=== PATIENT | female | born 1930 | race Caucasian/White ===

== ENCOUNTER 2016-05-02 10:42 | Inpatient (IN) | payer MEDICARE, OTHER ==
[~2016-05-02] VITALS: Ht 157.5 cm; Wt 73.3 kg
[~2016-05-02 10:42] MED LIST: ATOR20TA PO; CALC500T61 PO; CHOL100043 PO; CYAN50TA2 PO; DABI150C PO; DILT120C10 PO; DILT180C81 PO; FERR-83 PO; FURO40TA4 PO; LEVO88TA4 PO; METO100T3 PO; OMEP-113 PO; VENL37.57 PO; magnesium/zinc PO
[2016-05-02 10:47] VITALS: BP 152/72; PULSE 88; RESP 14; O2SAT 97
--- NOTE | 2016-05-02 10:55 | ED.REPORT ---
HPI-Trauma Minor / Fall Date of Service May 02, 2016 ED Provider: Tai Petersen DO The patient is an 85 year old female with history of endometrial carcinoma with metastatic disease s/p debulking and chemotherapy, congestive heart failure, iron deficiency anemia, atrial fibrillation, tachybradycardia syndrome s/p pacemaker/AICD implant, hypertension, and subdural hematoma in 2012, who was brought to the emergency department by EMS after she had a ground level fall prior to arrival. The patient was at the cardiology office trying to make an appointment when she turned around and fell to the ground. Per staff the patient did not hit her head or lose consciousness. She landed on her right side injuring her right hip and right thumb. Medics administered 50 IM ketamine and the patient is unable to provide history at this time. Nursing Notes Stated Complaint: GROUND LEVEL FALL Chief Complaint: Multiple Trauma/Fall Nursing Notes Reviewed: Yes Allergies: Coded Allergies: fentanyl (Verified Allergy, Severe, VOMIT, 02/13/13) iodine (Verified Allergy, Severe, SEVERE, 02/13/13) meperidine (Verified Allergy, Severe, 02/13/13) Scheduled ([magnesium/zinc]) 1 TAB PO DAILY Atorvastatin (Lipitor) 20 Mg Tablet 10 MG PO HS Calcium Carbonate (Calcium) 500 Mg Tablet 500 MG PO DAILY Cholecalciferol (Vitamin D3) (Vitamin D) 1,000 Unit Tablet 1,000 UNIT PO DAILY Cyanocobalamin (Vitamin B-12) (Vitamin B-12) 50 Mcg Tablet Unknown Dose PO DAILY Dabigatran Etexilate Mesylate (Pradaxa) 150 Mg Capsule 150 MG PO AM Diltiazem ER (Diltiazem ER) 180 Mg Capsule.er 180 MG PO BID Diltiazem ER (Diltiazem ER) 120 Mg Cap.er.12h 120 MG PO HS Ferrous Sulfate (Ferrous Sulfate) 325 Mg Tablet 325 MG PO DAILY Furosemide (Furosemide) 40 Mg Tablet 0.5 TAB PO AM Levothyroxine (Levothyroxine) 88 Mcg Tablet 88 MCG PO DAILY Metoprolol Tartrate (Metoprolol Tartrate) 100 Mg Tablet 2 TAB PO BID Omeprazole Magnesium (Omeprazole) 20 Mg Capsule.dr 20 MG PO DAILY Venlafaxine (Venlafaxine) 37.5 Mg Tablet 37.5 MG PO DAILY General Time Seen by MD: 10:49 Chief Complaint Fall, Extremity pain Hx Obtained From: Patient, EMS Arrived By: Ambulance Onset Occurred: Just prior to arrival Symptom Duration: Since onset Caused by: Fall on ground Location: Hand right Hip right Quality: Painful Severity: Current: Moderate Severity: Maximum: Severe Recent Healthcare: No recent hospitalization Similar Sx Previous: No Past Medical History Past Medical History Advanced endometrial carcinoma with metastatic disease s/p debulking, intraperitoneal systemic chemotherapy completed in December 2006 and was remained in remission since Congestive heart failure from nonischemic cardiomyopathy (last echo 08/22/2013: EF 55-60% was a marked improvement compared to prior, moderate mitral regurg, severely dilated left atrium) Iron deficiency anemia Atrial fibrillation Tachybradycardia syndrome Hypertension Subdural hematoma in December 2012 Sleep apnea Past Surgical History Biventricular pacemaker/AICD Cardiac cath in 2012 Debulking surgery for endometrial CA Family History Noncontributory Smoking History Former Smoker Social History Alcohol Use: Denies alcohol use Other Social History: Local resident Ambulatory Status Independent Review of Systems Unable to Obtain ROS Patient condition Musculoskeletal: Reports: Extremity pain, Joint pain Neurologic: Denies: Change LOC, Dizziness, Lightheaded, Syncope Physical Exam Initial Vital Signs Vital Signs (First) Date Time Temp Pulse Resp B/P Pulse Ox O2 Delivery O2 Flow Rate FiO2 05/02/16 10:47 36.4 88 14 152/72 97 Nasal Cannula 2 Initial VS: Reviewed ENT: Mucous membranes moist, Conjunctiva normal, No scleral icterus Extremities: Vascular intact, Neuro intact Skin: Warm, Dry, No cyanosis Neurologic: Nonfocal GENERAL: minimally verbal, sedated Neck: Supple, Full range of motion Head / Eyes: Atraumatic, Normocephalic Eye Movement: Positive: Nystagmus present Respiratory / Chest: Atraumatic, Breath sounds NL, Breath sounds = bilat, No respiratory distress, No rales, No rhonchi, No wheezing, No chest tenderness, No chest wall deformity, No crepitus Cardiovascular: Heart rate NL, Regular rhythm, Heart sounds NL, No murmurs, No rubs, Cap refill not delayed, Peripheral circulation NL Abdomen: Atraumatic, Soft, Non-tender, No guarding, No rebound, No distention Wrist / Hand: Neurologic intact, Vascular intact Bilateral chronic deformity at the base of the thumb. No obvious tenderness to palpation. Lower Extremity / Pelvis / MS: Neurologic intact, Vascular intact Tenderness at the right hip. Tenderness with axial movement of the right leg. Appears to be vascularly intact distally. Interpretation & Diagnostics Lab Results Interpretation Result Diagram: 05/02/16 1225 05/02/16 1225 Test 05/02/16 12:25 White Blood Count 13.1th/mm3 (3.8-10.1) Red Blood Count 4.32mil/mm3 (3.90-5.20) Hemoglobin 13.4g/dL (12.0-15.6) Hematocrit 40.6% (35.0-46.0) Mean Corpuscular Volume 94.0fL (81-100) Mean Corpuscular Hemoglobin 31.0pg (27.0-35.0) Mean Corpuscular Hemoglobin Concent 33.0% (32.0-37.0) Red Cell Distribution Width 13.0% (12.3-15.4) Platelet Count 225bil/L (150-400) Neutrophils (%) (Auto) 87.1% (40-74) Lymphocytes (%) (Auto) 9.3% (14-46) Monocytes (%) (Auto) 2.5% (4-12) Eosinophils (%) (Auto) 0.4% (0-5) Basophils (%) (Auto) 0.2% (0-3) Sodium Level 136mEq/L (134-144) Potassium Level 4.3mEq/L (3.5-5.2) Chloride Level 95mEq/L (97-108) Carbon Dioxide Level 25mmol/L (18-29) Blood Urea Nitrogen 29mg/dL (8-27) Creatinine 1.39mg/dL (0.57-1.00) Estimat Glomerular Filtration Rate 52mL/min (>59) Glucose Level 177mg/dL (60-99) Calcium Level 9.7mg/dL (8.5-10.1) Magnesium Level 2.0mg/dL (1.6-2.6) Total Bilirubin 0.7mg/dL (0.0-1.2) Aspartate Amino Transf (AST/SGOT) 21U/L (0-50) Alanine Aminotransferase (ALT/SGPT) 16U/L (0-32) Alkaline Phosphatase 105U/L (25-165) Troponin T < 0.010ug/L (0.0-0.011) Pro-B-Type Natriuretic Peptide 4618pg/mL (0-738) Total Protein 8.3g/dL (6.4-8.4) Albumin 4.5g/dL (3.4-5.0) Hold Cespedes Top Tube Received (Received) ECG Interpretation ECG Interpretation: Atrial fibrillation and paced rhythm Time: 11:18 Interpreted by: ED physician X-Ray Chest Interpretation Chest Xray Interpretation: IMPRESSION: Supine portable chest demonstrating no definite, acute cardiopulmonary process. Postoperative and senescent changes are seen. Dictated by: Suresh Stewart M.D. on 05/02/2016 at 11:16 Interpretation / Wet Read by: Interpret - Radiologist X-Ray Interpretation Xray Interpretation: IMPRESSION: There is an impacted, subcapital right femoral neck fracture seen. Dictated by: Suresh Stewart M.D. on 05/02/2016 at 11:13 X-Ray Ordered: Pelvis, Hip right Interpretation / Wet Read by: Interpret - Radiologist Xray Interpretation: 1st distal phalanx fracture Study Performed: Right thumb Interpretation / Wet Read by: Wet read ED physician Procedures Splint Application - Fx Mgt Time: 13:10 Procedure Performed by: ED physician Precise Anatomic Location: right thumb Type of Immobilization: Aluminum-foam Definitive Fracture Care: Pain control, Splint, Performed by me Post-Procedure / Complications: Cap refill normal, Post splint vascular nl, Post splint neuro nl, Condition improved Splint Post-Application Eval Extremity Condition: Cap refill < 2 sec, Distal sensation intact, Distal motor Intact, No compartment syndrome Re-Eval/Medical Decision Med Decision/Clinical Course Patient had a ground-level fall today. Unclear whether this was cardiogenic syncope, however the patient denies loss of consciousness or head injury and this sounds like it is corroborated by medics and bystanders on scene. She incidentally has a right femoral neck fracture and a right first distal phalanx fracture. It does appear that she may be in mild congestive heart failure though hemodynamically she is stable. She will be admitted. Source of Hx: Old records, EMS Re-Evaluation/Progress #1: Time of Eval: 11:43 Re-Evaluation/Progress Note: Rechecked the patient. She is more awake and alert, and able to answer questions. She only complains of right hip pain. She did not hit her head. She denies preceding chest pain, shortness of breath, dizziness, lightheadedness, or stroke-like symptoms. She states she was standing over the counter and either slipped or tripped. Re-Evaluation/Progress #2: Time of Eval: 12:06 Re-Evaluation/Progress Note: Rechecked the patient. Discussed results, diagnosis, and plan for admission. She is now complaining of right thumb pain, will order x-ray. All questions were addressed. Re-Evaluation/Progress #3: Time of Eval: 12:11 Re-Evaluation/Progress Note: Dr. Gallego is in the department seeing the patient. Consultation #1: Referral / Consult Name: Matthew Orr MD Consulted With: Orthopedic Call Returned at: 12:22 Executive Director Of Marketing: Will see patient, Agrees with eval, Agrees with plan Consultation #2: Referral / Consult Name: Azeb Gallego MD Consulted With: Cardiology Call Returned at: 12:23 Note: She is the patient's customer care coordinator and will consult if needed. Consultation #3: Referral / Consult Name: David Ng MD Consulted With: Hospitalist Requested Call at: 12:24 Call Returned at: 12:56 Executive Director Of Marketing: Will see patient, Agrees with eval, Agrees with plan, Accepts admit Counseled Regarding: Diagnosis, Lab results, Need for admission Discharge & Departure Impression: Primary Impression: Fall Encounter type: initial encounter Qualified Code: W19.XXXA - Unspecified fall, initial encounter Additional Impressions: Closed right hip fracture Encounter type: initial encounter Qualified Code: S72.001A - Fracture of unspecified part of neck of right femur, initial encounter for closed fracture CHF exacerbation Phalanx, distal fracture of finger Encounter type: initial encounter Finger: thumb Fracture type: closed Fracture alignment: nondisplaced Laterality: right Qualified Code: S62.524A - Nondisplaced fracture of distal phalanx of right thumb, initial encounter for closed fracture Disposition: ADMITTED TO HOSPITAL Discharge Condition All VS Reviewed: Yes Condition: Stable Referrals: Sanjay Gray MD (PCP) Scribe Attestation Portions of this note were transcribed by Mercedes Miranda. I, Dr. Petersen personally performed the history, physical exam and medical decision-making; I reviewed and confirmed the accuracy of the information in the transcribed note. Signed by: Rand Singletary, 05/02/2016 and 1315. copies to: Sanjay Gray MD, Timothy S DO May 02, 2016 10:55 Mercedes Miranda May 02, 2016 11:00
[2016-05-02] MEDS ORDERED: Ondansetron 2 mg/mL 2 mL Inj IVPUSH ONE (11:05)
--- NOTE | 2016-05-02 12:18 | DRSVH ---
PROCEDURE: X-RAY PELVIS W/LAT HIP (RT) ([id number]) INDICATIONS: fall, right hip pain TECHNIQUE: AP pelvis with lateral view(s) of the right hip(s). COMPARISON: [facility], CT, PELVIS W/O CONTRAST, 03/21/2013, 16:15. [facility], [facility]EL[facility] 1 OR 2VW, 01/19/2013, 19:38. [facility], CR, XR CHEST 1VW (PORTABLE), , 11:48. FINDINGS: Bones: There is a poorly seen, impacted fracture of the subcapital right femoral neck. This represe nts a change compared to the 2012 plain film study. There is no right hip dislocation. No definite additional focal bone abnormality can be seen. Degen erative changes are seen throughout, particularly involving the lower lumbar spine. No suspicious lyt ic or blastic lesions are seen. Soft tissues: The visualized bowel gas pattern is normal. No suspicious soft tissue calcifications. Postoperative changes are seen, with numerous clips, including omentectomy clips. Atherosclerotic c alcification is noted. IMPRESSION: There is an impacted, subcapital right femoral neck fracture seen. Dictated by: Suresh Stewart M.D. on 05/02/2016 at 11:13 Approved by: Suresh Stewart M.D. on 05/02/2016 at 11:16
--- NOTE | 2016-05-02 12:21 | DRSVH ---
PROCEDURE: X-RAY CHEST ONE VIEW, PORTABLE ([id number]) INDICATIONS: fall, right hip pain TECHNIQUE: One view of the chest was acquired. COMPARISON: [facility], CR, XR PELVIS W LATERAL HIP RT, 05/02/2016, 11:48. [facility], CR, CHEST 2VW, 09/11/2014, 8:43. FINDINGS: Surgical changes and devices: A 3-lead pacer device is seen. Upper abdominal postoperative clips are seen involving the left upper quadrant. Lungs and pleura: On this supine examination, no large pneumothorax or large pleural effusions are s een. No focal areas of lung consolidation are seen. Low lung volumes are noted. This causes a crowded appearance to the lung markings and limits evaluation. Mediastinum: Mediastinal contours appear normal. Heart size is normal. Bones and chest wall: No suspicious bony lesions. No definite, displaced rib fractures are seen. A ge-appropriate bony degenerative changes are seen. Overlying soft tissues appear unremarkable. IMPRESSION: Supine portable chest demonstrating no definite, acute cardiopulmonary process. Postoperative and senescent changes are seen. Dictated by: Suresh Stewart M.D. on 05/02/2016 at 11:16 Approved by: Suresh Stewart M.D. on 05/02/2016 at 11:19
[2016-05-02 12:42] LABS: BASOPHILS % (AUTO) 0.2 % (0-3); EOSINOPHILS % (AUTO) 0.4 % (0-5); MONOCYTES % (AUTO) 2.5 % (4-12); NEUTROPHILS % (AUTO) 87.1 % (40-74); Platelet Count 225 bil/L (150-400)
[2016-05-02] MEDS: Lactated Ringer's 1,000 ML IV SCH ×2 (12:59→23:39)
[2016-05-02] MEDS ORDERED: Polyethylene Glycol (PEG) 17 Gm Powder PO PRN (13:00)
[2016-05-02] MEDS ORDERED: Ondansetron 2 mg/mL 2 mL Inj IVPUSH PRN ×2 (13:00→13:15)
[2016-05-02] MEDS ORDERED: Alum-Mag Hydrox-Simeth 30 mL Suspension PO PRN ×2 (13:00→13:15)
[2016-05-02 13:21] LABS: TROPONIN T < 0.010 ug/L (0.0-0.011)
--- NOTE | 2016-05-02 13:23 | DRSVH ---
PROCEDURE: X-RAY FINGERS, TWO VIEWS INDICATIONS: thumb pain post fall TECHNIQUE: AP hand, 2 views of the right thumb acquired. COMPARISON: None. FINDINGS: Bones: There is a transverse linear sclerosis with proximal radiolucency in the midshaft of the dista l phalanx of the thumb, suggestive of compaction injury with incomplete fracture. Degenerative joint disease is evident at the IP joint, the metacarpal phalangeal joint and the basilar joint of the thum b. There is also degeneration in the scaphomultangular joint of the wrist as well as the DIP joints o f the fingers, PIP joint of the fifth ray and the second metacarpal phalangeal joint. Soft tissues: No suspicious soft tissue calcifications. IMPRESSION: 1. Probable impaction injury mid shaft distal phalanx of the thumb for cortical correlation. 2. 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 Dictated by: Davis Estrada M.D. on 05/02/2016 at 13:18 Approved by: Davis Estrada M.D. on 05/02/2016 at 13:22
--- NOTE | 2016-05-02 13:46 | CONS ---
[address] [address] CONSULTATION REPORT PATIENT: MARIALUISA DEVI : 1930 MR#: [id number] ADMIT: 05/02/2016 JOB ID: [id number] DATE OF SERVICE: 05/02/2016 CARDIOLOGY CONSULTATION: CHIEF COMPLAINT: Ground level fall and hip fracture. HISTORY OF PRESENT ILLNESS: The patient is a delightful 85-year-old woman with multiple cardiovascular conditions including chronic AFib, nonischemic cardiomyopathy with improvement after BiV upgrade, tachybrady syndrome, coronary artery disease -- medically managed and history of advanced endometrial cancer diagnosed in 2005, status post debulking. She was just stopping by to schedule a followup appointment when she apparently tripped, fell, broke her hip and is currently in the emergency department awaiting admission. She says that over the past few months she has been getting worsening shortness of breath. She denies chest pain, orthopnea, palpitations, or PND. She says she has been compliant with her medications. Her most recent device check was performed in January and showed that her BiV pacing was reduced at 46%. However, we were not able to safely escalate her AV esthela blockers and due to her advanced age, she was not a good candidate for AV junction ablation. Right now, she is able to lay flat and has mild shortness of breath. PAST MEDICAL HISTORY: 1. Coronary artery disease, status post catheterization in January 2013, with 80% mid LAD, 50% OM, 50% RCA. These lesions were treated medically because of her advanced age. She had fractional flow reserve of the LAD lesion, which was 0.88, and at that time it was interpreted as being not hemodynamically significant. 2. Idiopathic cardiomyopathy. She has global hypokinesis. EF was 20% as of January 2013, and was up to 55% as of August 23, 2013. Her most recent echocardiogram was performed in June 2015, and showed ejection fraction of 55%. There was moderate dyssynchrony to the paced rhythm. She had severe left atrial enlargement, moderate right atrial enlargement, moderate mitral regurgitation, moderate tricuspid regurgitation, moderate pulmonic regurgitation. 3. She has mild aortic stenosis and mild aortic regurgitation, unchanged from prior study. 4. Chronic AFib diagnosed in 2011. 5. Pacemaker upgrade from single lead to a BiV device ([place]) in April 2013. 6. Syncope resulting in subdural hematoma. Medically treated (January 2013). 7. Metastatic endometrial adenocarcinoma. Also, fallopian tube carcinoma, status post debulking and paclitaxel chemotherapy in 2005. 8. Hypertension. 9. Hyperlipidemia. 10. Diabetes. 11. Obstructive sleep apnea. Not currently using CPAP. 12. Reflux. 13. Chronic anemia. FAMILY HISTORY: She has a very caring son Hayes who lives locally and very caring daughter. Her mother from stroke. Her father is from unknown cause. Her sister has heart disease. Another sister is living and has had a history of valve repair. SOCIAL HISTORY: She is a former smoker. 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 ALLERGIES: 1. FENTANYL. 2. IODINE. 3. MEPERIDINE. HOME MEDICATIONS: Include: 1. Atorvastatin 20 mg daily. 2. Diltiazem CD 300 mg daily. 3. Lasix 40 mg 1/2 tablet daily. 4. Lisinopril 5 mg 1/2 tablet daily. 5. Metoprolol tartrate 100 mg dose 2 tablets twice a day. 6. Effexor 37.5 mg daily. 7. Zinc/vitamin B12/vitamin D3/calcium/magnesium supplements. 8. Levothyroxine 88 mcg daily. 9. Glipizide 5 mg daily. 10. Metformin -- prescribed 500 mg twice a day but she says she has not been taking it. REVIEW OF SYSTEMS: Shortness of breath as outlined in history of present illness but no chest pain, orthopnea, PND, or palpitations. 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 She also has a rash in her ear, for which she is followed by Dr. Back. oTHERWISE 10 point ROS is negative PHYSICAL EXAMINATION: Vital signs: Temperature 36.4, pulse at this moment in time is actually 120 beats per minute. She is in AFib with RVR. Blood pressure 152/72, saturating 97% on 3 liters nasal cannula. Very pleasant elderly lady, in no apparent distress. Eyes: No scleral icterus. Neck is supple. No carotid bruits. Heart: Normal S1, S2. No murmurs. Lungs: Clear anteriorly. Abdomen: Soft, positive bowel sounds. Extremities: With trace edema bilaterally. Skin shows a rash in her right ear and on her chest that she says is squamous cell. LABORATORIES: Unfortunately, at this moment in time, are still pending. DIAGNOSTIC STUDIES: EKG shows that she is in AFib with RVR and wide QRS complexes. EKG shows left bundle branch block morphology. Chest x-ray shows, on personal review, cardiomegaly, increased fullness in her pacemaker with three wires, atrial wire, RV wire and LV epicardial wire, and heavy calcification along the aortic knob. Prior radiograph performed September 09, 2014, on personal review, shows no significant change. The x-ray of the pelvis with lateral hip unfortunately shows a right hip fracture. The fracture is an impacted subcapital right femoral neck fracture. ASSESSMENT AND PLAN: This is a delightful 85-year-old woman with unfortunately a hip fracture after a ground level fall. She is a complex medical patient with nonischemic cardiomyopathy and coronary artery disease that was not hemodynamically significant as of three years ago but certainly could have progressed. That may be why she has worsening dyspnea on exertion. Unfortunately, it is not really practical for us to catheterize her again at this juncture because she really needs surgery. So, the plan is for her is to continue her beta estevan and calcium channel estevan for rate control in the perioperative period. We should stop her Eliquis, and no bridge is necessary. Anticipate 48 hours without her oral anticoagulant prior to surgery, so the earliest I see her having surgery would be . We will closely monitor her in the perioperative period. She is pacemaker dependent. So, I would recommend heavy beta blockade in the perioperative period, and I will leave separate recommendations for device management, and a separate thought, I think that it is probably not necessary to put a magnet on her device because this surgery is below her umbilicus, and I think no post surgery device interrogation would be indicated. Thank you for the opportunity to evaluate this delightful lady. MARTY
[2016-05-02 14:59] VITALS: BP 173/85; PULSE 90; RESP 18; O2SAT 96
[2016-05-02] MEDS: HYDROcodone-APAP 5-325 mg Tablet PO PRN (16:40)
--- NOTE | 2016-05-02 18:09 | PCM.CONORT ---
Subjective Date of Surgery: May 02, 2016 Surgeon Admitting Provider: Attending Provider: Primary Care Physician:Sanjay Gray MD Orthopedic surgeon: Matthew Orr M.D. Manager Organizational: Azeb Gallego M.D. Reason for Consultation: The patient is an 85-year-old retired [place] [employer]. She has a significant medical history that includes multiple cardiac problems and diabetes mellitus. She is anticoagulated on Eliquis and has a cardiac pacemaker/defibrillator managed by her service desk lead,Azeb Gallego M.D. The patient is normally a community ambulator who does not use ambulatory aids, but has had at least one fall over the last year secondary to her deteriorating gait. The patient was at her service desk lead's office this morning when she apparently lost her balance, tripped and fell to the ground landing onto her right side. There was no loss of consciousness, antecedent vasovagal symptoms or dizziness. The patient denies any pre-existing hip pain or symptomatology, but was unable to weight- bear through her right lower extremity due to right groin pain after the fall. The patient also reports discomfort in her right thumb. There were no associated, scrapes or neurovascular symptomatology in her extremities. Paramedics were called and the patient was transported to [facility] emergency room where she was seen and assessed. X-rays of the patient' s right hip revealed a moderately valgus impacted femoral neck fracture and possible, nondisplaced right thumb distal phalanx impaction fracture. The patient's right thumb has been appropriately splinted. The patient has been admitted to the Hospitalist service and Dr. Gallgeo has provided a cardiology consultation. An orthopedic surgical consultation has been requested for definitive management of the patient's right hip and thumb fractures. Allergy Allergies: Coded Allergies: fentanyl (Verified Allergy, Severe, VOMIT, 02/13/13) iodine (Verified Allergy, Severe, SEVERE, 02/13/13) meperidine (Verified Allergy, Severe, 02/13/13) Medications Last Dose Blood Thinner: May 01, 2016 (Eliquis) Hypertension Medication: Yes Home Meds Incl Beta Blockers: Yes ([magnesium/zinc]) 1 TAB PO DAILY (Reported) Atorvastatin (Lipitor) 20 Mg Tablet 10 MG PO HS (Reported) Calcium Carbonate (Calcium) 500 Mg Tablet 500 MG PO DAILY (Reported) Cholecalciferol (Vitamin D3) (Vitamin D) 1,000 Unit Tablet 1,000 UNIT PO DAILY ( Reported) Cyanocobalamin (Vitamin B-12) (Vitamin B-12) 50 Mcg Tablet Unknown Dose PO DAILY (Reported) Dabigatran Etexilate Mesylate (Pradaxa) 150 Mg Capsule 150 MG PO AM (Reported) Diltiazem ER (Diltiazem ER) 180 Mg Capsule.er 180 MG PO BID (Reported) Diltiazem ER (Diltiazem ER) 120 Mg Cap.er.12h 120 MG PO HS (Reported) Ferrous Sulfate (Ferrous Sulfate) 325 Mg Tablet 325 MG PO DAILY (Reported) Furosemide (Furosemide) 40 Mg Tablet 0.5 TAB PO AM (Reported) Levothyroxine (Levothyroxine) 88 Mcg Tablet 88 MCG PO DAILY (Reported) Metoprolol Tartrate (Metoprolol Tartrate) 100 Mg Tablet 2 TAB PO BID (Reported) Omeprazole Magnesium (Omeprazole) 20 Mg Capsule.dr 20 MG PO DAILY (Reported) Venlafaxine (Venlafaxine) 37.5 Mg Tablet 37.5 MG PO DAILY (Reported) History History of ENT Problems?: Yes HEENT History: Positive for:: Cataracts (Removed OU) Sinus Problem (Seasonal sinusitis) Denies:: Abnormal Airway Difficult Intubation Dysphagia Hearing Problem Hx of Heart Problems?: Yes Cardiovascular History: Positive for:: Atrial Fibrillation Cardiac Surgery (pacemaker 2010) Edema Hypertension Irregular Heartbeat (A-Fib; tachy-vandana) Pacemaker (IN SITU) Denies:: AICD Chest Pain Congestive Heart Failure Thrombophlebitis Valvular Heart Disease Other History/Comments Patient is pacemaker dependent BiV device (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 ) Denies:: Alzheimer's Disease Dementia Hx of GI Problems?: Yes Gastrointestinal History: Positive for:: Gastroesphageal Reflux Gastrointestinal Bleeding Heartburn Rectal Bleeding Denies:: Cirrhosis Diverticulitis Hepatitis Hiatal Hernia Hx of Problems?: No Genitourinary History: Positive for:: Urinary Tract Infection Denies:: Kidney Stones Female Hx: Denies:: Currently Endometriosis Pelvic Inflammatory Hx Musculoskeletal Problems?: Yes Musculoskeletal History: Denies:: Back Injury Joint Replacement Musculoskeletal Trauma Hx of Psycho/Social Problems?: No Psycho Social History: Denies:: Anxiety Hx Depression Hx Surgeries?: Yes (Hysterectomy, Appendectomy) Hx Any Other Health Problems?: Yes Other History: Positive for:: Cancer (Ovarian; endometrial) Hospitalization (Chemo rx, pac removed) Thyroid Disease Denies:: Endocrine Disease History Blood Transfusions: Positive for:: Blood Transfusions Denies:: Blood Transfuse Reaction Hx Diabetes: Yes (not on insulin) Hx Alcohol Use: NoHx Substance Use: No Smoking Status: Former Smoker Have You Smoked inLast 12 mo: No (QUIT 1961) Objective Exam Objective Imaging Patient Name: MARIALUISA DEVI MR#: [id number] Location: [facility] [place] Ordering Phys: Tai Petersen DO Date of Service: 05/02/16 1101 PROCEDURE: X-RAY PELVIS W/LAT HIP (RT) ([id number]) INDICATIONS: fall, right hip pain TECHNIQUE: AP pelvis with lateral view(s) of the right hip(s). COMPARISON: [facility], CT, PELVIS W/O CONTRAST, 03/21/2013, 16: 15. [facility], CR, PELVIS 1 OR 2VW, 01/19/2013, 19:38. [facility], CR, XR CHEST 1VW (PORTABLE), 05/02/2016, 11:48. FINDINGS: Bones: There is a poorly seen, impacted fracture of the subcapital right femoral neck. This represents a change compared to the 2012 plain film study. There is no right hip dislocation. No definite additional focal bone abnormality can be seen. Degenerative changes are seen throughout, particularly involving the lower lumbar spine. No suspicious lytic or blastic lesions are seen. Soft tissues: The visualized bowel gas pattern is normal. No suspicious soft tissue calcifications. Postoperative changes are seen, with numerous clips, including omentectomy clips. Atherosclerotic calcification is noted. IMPRESSION: There is an impacted, subcapital right femoral neck fracture seen. Dictated by: Suresh Stewart M.D. on 05/02/2016 at 11:13 Approved by: Suresh Stewart M.D. on 05/02/2016 at 11:16 Patient Name: MARIALUISA DEVI MR#: [id number] Location: [facility] [place] Ordering Phys: Tai Petersen DO Date of Service: 05/02/16 1232 PROCEDURE: X-RAY FINGERS, TWO VIEWS INDICATIONS: thumb pain post fall TECHNIQUE: AP hand, 2 views of the right thumb acquired. COMPARISON: None. FINDINGS: Bones: There is a transverse linear sclerosis with proximal radiolucency in the midshaft of the distal phalanx of the thumb, suggestive of compaction injury with incomplete fracture. Degenerative joint disease is evident at the IP joint , the metacarpal phalangeal joint and the basilar joint of the thumb. There is also degeneration in the scaphomultangular joint of the wrist as well as the DIP joints of the fingers, PIP joint of the fifth ray and the second metacarpal phalangeal joint. Soft tissues: No suspicious soft tissue calcifications. IMPRESSION: 1. Probable impaction injury mid shaft distal phalanx of the thumb for cortical correlation. 2. 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 Dictated by: Davis Estrada M.D. on 05/02/2016 at 13:18 Approved by: Davis Estrada M.D. on 05/02/2016 at 13:22 Vital Signs & I/O Vital Sign- Last 8 Hours Date Time Temp Pulse Resp B/P Pulse Ox O2 Delivery O2 Flow Rate FiO2 05/02/16 14:59 90 18 173/85 96 Room Air 05/02/16 10:47 36.4 88 14 152/72 97 Nasal Cannula 2 05/02/16 10:47 36.4 88 14 152/72 97 Nasal Cannula 2 Lab & Micro Results Laboratory Tests Test 05/02/16 12:25 05/02/16 13:46 White Blood Count 13.1th/mm3 (3.8-10.1) Red Blood Count 4.32mil/mm3 (3.90-5.20) Hemoglobin 13.4g/dL (12.0-15.6) Hematocrit 40.6% (35.0-46.0) Mean Corpuscular Volume 94.0fL (81-100) Mean Corpuscular Hemoglobin 31.0pg (27.0-35.0) Mean Corpuscular Hemoglobin Concent 33.0% (32.0-37.0) Red Cell Distribution Width 13.0% (12.3-15.4) Platelet Count 225bil/L (150-400) Neutrophils (%) (Auto) 87.1% (40-74) Lymphocytes (%) (Auto) 9.3% (14-46) Monocytes (%) (Auto) 2.5% (4-12) Eosinophils (%) (Auto) 0.4% (0-5) Basophils (%) (Auto) 0.2% (0-3) Sodium Level 136mEq/L (134-144) Potassium Level 4.3mEq/L (3.5-5.2) Chloride Level 95mEq/L (97-108) Carbon Dioxide Level 25mmol/L (18-29) Blood Urea Nitrogen 29mg/dL (8-27) Creatinine 1.39mg/dL (0.57-1.00) Estimat Glomerular Filtration Rate 52mL/min (>59) Glucose Level 177mg/dL (60-99) Calcium Level 9.7mg/dL (8.5-10.1) Magnesium Level 2.0mg/dL (1.6-2.6) Total Bilirubin 0.7mg/dL (0.0-1.2) Aspartate Amino Transf (AST/SGOT) 21U/L (0-50) Alanine Aminotransferase (ALT/SGPT) 16U/L (0-32) Alkaline Phosphatase 105U/L (25-165) Troponin T < 0.010ug/L (0.0-0.011) Pro-B-Type Natriuretic Peptide 4618pg/mL (0-738) Total Protein 8.3g/dL (6.4-8.4) Albumin 4.5g/dL (3.4-5.0) Hold Cespedes Top Tube Received (Received) Hold Urine Received (Received) Result Diagram: 05/02/16 1225 05/02/16 1225 Review of Systems: Constitutional: Negative, except as otherwise mentioned in the history above. Ophthalmologic: Negative, except as otherwise mentioned in the history above. Cardiovascular: Negative, except as otherwise mentioned in the history above. Respiratory: Negative, except as otherwise mentioned in the history above. Gastrointestinal: Negative, except as otherwise mentioned in the history above. Genitourinary: Negative, except as otherwise mentioned in the history above. Musculoskeletal: Negative, except as otherwise mentioned in the history above. Neurological: Negative, except as otherwise mentioned in the history above. Psychiatric: Negative, except as otherwise mentioned in the history above. Hematologic/Lymphatic: Negative, except as otherwise mentioned in the history above. Allergic/Immunologic: Negative, except as otherwise mentioned in the history above. H&P Surgical Exam Exam General: Alert, Oriented X3, Cooperative, No Acute Distress Musculoskeletal: Right lower extremity: No significant external rotation or shortening deformity. Skin about the right hip is intact with no significant swelling, ecchymosis or lesions. There is tenderness in the right groin to gentle attempt at hip rotation and flexion. The remaining thigh, knee, leg, ankle and foot are nontender to palpation. Neurovascular exam: Superficial peroneal, deep peroneal and saphenous sensation grossly intact to light touch. Ankle dorsiflexion, extensor hallucis and ankle plantarflexion 4/5 motor power. Dorsalis pedis pulse is palpable. Right thumb: The thumb is appropriately splinted in a volar splint. Skin is intact. Mild to moderate tenderness to palpation of the distal phalanx shaft. No gross angular rotational deformity. No significant discomfort to base of thumb, MCP or IP joint palpation. Thumbnail is intact. Sensation and capillary refill of the thumb tip is intact. H&P Preop Plan Impression #1 Right hip moderately valgus impacted femoral neck fracture in elderly patient with multiple cardiac and medical comorbidities on anticoagulant therapy following ground-level fall at her service desk lead's office 05/02/2016. #2 Right thumb nondisplaced, impaction distal phalanx shaft fracture in elderly patient with ipsilateral right hip fracture following ground-level fall 2016. Problems: Risks & Benefits * We have reviewed the risks and benefits as well as the alternatives to surgery. All questions were answered to the patient's satisfaction and a counseling note to that effect. The patient has provided informed consent. * I have counseled the patient regarding the deleterious effects that smoking during the perioperative period can have upon wound healing, infection rates, and the overall rate of complications. Plan I have reviewed the diagnoses and treatment options with the patient today. I would recommend proceeding with a right hip in situ cannulated pinning when the patient has been medically optimized and cleared for right hip surgery. The proposed surgery would be less invasive than a hemiarthroplasty procedure and Dr. Gallego feels that her anticoagulation status, now that she is off Eliquis , should be satisfactorily reversed to allow for surgery as early as , 05/04/2016. We reviewed the potential risks and benefits of surgery including, but not limited to, discussions involving infection, bleeding, neurovascular injury, stiffness, weakness, hypersensitivity and reflex sympathetic dystrophy, fracture malunion, fracture nonunion, femoral head avascular necrosis, failure of reduction or hardware, hardware pain, posttraumatic arthritis and need for further surgery including hardware removal and revision to total hip arthroplasty. We also discussed general medical complications including, but not limited to, stroke, myocardial infarction, cardiorespiratory arrest, generalized infection or sepsis, deep vein thrombosis and pulmonary embolism and exacerbation of pre-existing medical comorbidities. I will appreciate the assistance of the hospitalist service and medically optimizing this patient with a 05/04/2016 target date for surgery. The patient's right thumb fracture may be managed non-operatively with a thumb spica splint and activity modification to avoid forceful right thumb gripping and pinching for the next 4- 6 weeks. Unfortunately, the patient's right thumb injury may compromised somewhat her ability to offload her right hip for the next 6 weeks postoperatively as she will have right lower extremity touchdown weightbearing restrictions. She will likely benefit from a detention facility placement after her acute hospital stay at [facility] as she continues her hip fracture rehabilitation. copies to: Sanjay Gray MD; Azeb Gallego MD; Matthew Orr MD, Michael G.E MD May 02, 2016 18:09
[2016-05-02 18:20] VITALS: BP 149/81; PULSE 98; RESP 20; O2SAT 97
[2016-05-02 19:36] VITALS: BP 148/79; PULSE 95; RESP 20; O2SAT 92
[2016-05-02] MEDS ORDERED: Heparin 5,000 Unit/mL Inj SUBQ SCH (20:30)
[2016-05-02] MEDS ORDERED: FURO40TA4 PO (20:54)
[2016-05-02] MEDS ORDERED: APIX5TAB PO (20:54)
[2016-05-02] MEDS ORDERED: OMEP20CA11 PO (20:54)
[2016-05-02] MEDS ORDERED: METF500T4 PO (20:54)
[2016-05-02] MEDS ORDERED: CALC-952 PO (20:54)
[2016-05-02] MEDS ORDERED: CYAN10008 PO (20:54)
[2016-05-02] MEDS ORDERED: MAGN250T29 PO (20:54)
[2016-05-02] MEDS ORDERED: LISI-571 PO (20:54)
[2016-05-02] MEDS ORDERED: GLPZ5T PO (20:54)
[2016-05-02] MEDS ORDERED: Glucose 40% Oral Gel 15 Gm Tube PO PRN (21:25)
[2016-05-02] MEDS: Insulin LISPRO 300 Unit/3 mL Inj SUBQ SCH (22:00)
--- NOTE | 2016-05-02 22:48 | PCM.HPMED ---
Subjective Date of Service May 02, 2016 Primary Provider: Admitting Physician: David Ng MD Primary Care Physician: Sanjay Gray MD Attending Physician: David Ng MD Chief Complaint: Right hip pain after a fall at Dr. Gallego's office lobby History of Present Illness: The patient is an 85 year old female with history of endometrial carcinoma with metastatic disease s/p debulking and chemotherapy, congestive heart failure, iron deficiency anemia, atrial fibrillation, tachybradycardia syndrome s/p pacemaker/AICD implant, hypertension, and subdural hematoma in 2012, who was brought to the emergency department by EMS after she had a ground level fall prior to arrival. The patient was at the cardiology office trying to make an appointment when she turned around and fell to the ground. Per staff the patient did not hit her head or lose consciousness. She landed on her right side injuring her right hip and right thumb. Medics administered 50 IM ketamine patient was brought to [facility] emergency room where she was evaluated by Dr. Tai Hope who performed an x-ray of the right hip which showed an impacted, subcapital right femoral neck fracture. Dr. Matthew Orr was consulted orthopedic surgery. Dr. Gallego cardiology was consulted and saw the patient in the emergency room. Patient was admitted to the hospitalist service. Review of Systems: General: Patient states she has no pain if she does not move. However, she moved she has excruciating pain in her right hip HEENT: Patient has no headache, patient has no diplopia, patient has no changes in vision. The patient has had bilateral cataract surgery and does wear corrective lenses. Patient has no problems with her ears, nose or throat. Patient has known dental problems. She has upper and lower partial dentures. Patient has no pharyngitis or history of thrush. Neck: Patient has no stiffness in her neck. Patient has no lymphadenopathy. Patient has no problems with her neck. Pulmonary: Patient has no shortness of breath, no cough, no expectoration of sputum. She has no pleurisy. Patient has no chest pain. Patient has no history of asthma or COPD. she has an approximate 10 pack year history of smoking Cardiovascular: Patient has no chest pain. Patient has no history of heart murmur. Patient has no palpitations. Patient has no history of myocardial infarction. Patient has no history of coronary artery disease. Patient has a history of atrial fibrillation with tachybradycardia syndrome. She is status post pacemaker/AICD implant and hypertension Gastrointestinal: Patient has no history of hepatitis A, B or C. Patient has no history of peptic ulcer disease. Patient has no history of gastroesophageal reflux disease. Patient has no history of nausea, vomiting, or diarrhea. Patient has no history of hematemesis, hematochezia, or melena. Patient has no history of colitis. Renal: Patient has no history of kidney disease. No history of kidney stones. Genitourinary: Patient has no history of dysuria, frequency, or incontinence. Patient has no previous history of genitourinary problems. Musculoskeletal: Patient has no history of muscular skeletal problems prior to today's fall, other than osteoarthritis Neurologic: Patient has no history of stroke, no history of seizure, no history of TIA. Patient had a syncopal episode prior to pacemaker placement. Patient had a subdural hematoma as result of the syncopal incident. She states she has some memory recall problems since that time. Psychiatric: Patient has no history of psychiatric problems, other than some depression after her . She has been on Effexor ever since and gets withdrawals when she has missed her medication, due to forgetting to get her ascription refilled.. The remainder of the entire review of systems was reviewed with patient and is as mentioned above otherwise negative. Allergies Coded Allergies: fentanyl (Verified Allergy, Severe, VOMIT, 05/02/16) iodine (Verified Allergy, Severe, SEVERE, 05/02/16) meperidine (Verified Allergy, Severe, 05/02/16) Home Medications ([magnesium/zinc]) 1 TAB PO DAILY Atorvastatin (Lipitor) 20 Mg Tablet 10 MG PO HS Calcium Carbonate (Calcium) 500 Mg Tablet 500 MG PO DAILY Cholecalciferol (Vitamin D3) (Vitamin D) 1,000 Unit Tablet 1,000 UNIT PO DAILY Cyanocobalamin (Vitamin B-12) (Vitamin B-12) 50 Mcg Tablet Unknown Dose PO DAILY Eliquis 5 mg by mouth twice a day Diltiazem ER (Diltiazem ER) 180 Mg Capsule.er 180 MG PO BID Diltiazem ER (Diltiazem ER) 120 Mg Cap.er.12h 120 MG PO HS Ferrous Sulfate (Ferrous Sulfate) 325 Mg Tablet 325 MG PO DAILY Furosemide (Furosemide) 40 Mg Tablet 0.5 TAB PO AM on Sunday, Sunday and Sunday and the full 40 mg on Sunday, , Sunday and Sunday Levothyroxine (Levothyroxine) 88 Mcg Tablet 88 MCG PO DAILY Metoprolol Tartrate (Metoprolol Tartrate) 100 Mg Tablet 2 TAB PO BID Omeprazole Magnesium (Omeprazole) 20 Mg Capsule.dr 20 MG PO DAILY Venlafaxine (Venlafaxine) 37.5 Mg Tablet 37.5 MG PO DAILY PMH 1. Coronary artery disease, status post catheterization in January 2013, with 80% mid LAD, 50% OM, 50% RCA. These lesions were treated medically because of her advanced age. She had fractional flow reserve of the LAD lesion, which was 0.88, and at that time it was interpreted as being not hemodynamically significant. 2. Idiopathic cardiomyopathy. She has global hypokinesis. EF was 20% as of January 2013, and was up to 55% as of August 23, 2013. Her most recent echocardiogram was performed in June 2015, and showed ejection fraction of 55%. There was moderate dyssynchrony to the paced rhythm. She had severe left atrial enlargement, moderate right atrial enlargement, moderate mitral regurgitation, moderate tricuspid regurgitation, moderate pulmonic regurgitation. 3. She has mild aortic stenosis and mild aortic regurgitation, unchanged from prior study. 4. Chronic AFib diagnosed in 2011. 5. Pacemaker upgrade from single lead to a BiV device ([place]) in April 2013. 6. Syncope resulting in subdural hematoma. Medically treated (January 2013). 7. Metastatic endometrial adenocarcinoma. Also, fallopian tube carcinoma, status post debulking surgery with intraperitoneal chemotherapy lavage at [facility] followed by paclitaxel chemotherapy in 2005. 8. Hypertension. 9. Hyperlipidemia. 10. Diabetes. 11. Obstructive sleep apnea. Not currently using CPAP. 12. Reflux. 13. Chronic iron deficiency anemia. Surgical History Bilateral cataract surgery [place] teeth removed 4. With subsequent removal of several other teeth and partial dentures upper and lower Tonsillectomy at the age of 6 appendectomy at the age of 16 Inguinal hernia repair Pacemaker placement with upgrade to biventricular pacemaker/AICD as mentioned in the past medical history Metastatic endometrial adenocarcinoma. Also, fallopian tube carcinoma, status post debulking surgery with intraperitoneal chemotherapy lavage at [facility] Family History Patient's mother of complications of heart disease due to very infectious cause of meningitis. The patient states her mother within 6 hours from the time she became ill, while the patient was in [facility] Patient's father left her mother and the patient was 3 years old and she does not know anything about her father's medical history Patient has 1 sibling who is a sister who is 82 years old and has heart problems , reportedly she had valvular repair Social History Hx Alcohol Use: Yes (she is to have a drink champagne at [facility] and when she was younger drink more but never had a drinking problem. She quit drinking in 1997) Hx Substance Use: No Hx Tobacco Use: Yes Smoking Status: Former Smoker (smoked one half pack a day between 16 and 36. ) Living Arrangement: Alone (she just sold her home on the [address] [facility] [address] and is planning on moving into a small condo in [place]) Additional Information Patient was born in and raised in [place]. She went to [employer] and graduated. She went to [employer] for a couple of years and states finances. She got and had 2 children. Her son Hayes lives in [place], [place] and has a daughter who lives [facility]. She stayed to her first for 21 years. She then met and her second and stayed for 19 years until he in 1997. The patient met and became friends is Martin and Chelsea gutierrez. 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 He was living in a home monitor on [address]. She just recently sold the home to move into a condo in [place]. Exam Vital Signs Vital Sign - Last Date Time Temp Pulse Resp B/P Pulse Ox O2 Delivery O2 Flow Rate FiO2 05/02/16 19:36 36.6 95 20 148/79 92 Nasal Cannula 2.50 Exam General: Patient is in no apparent distress, she is lying comfortably in bed HEENT: Head is atraumatic normocephalic. Eyes: Pupils are equally round and reactive to light and accommodation. Extraocular muscles are intact. Sclera are white anicteric. Subconjunctival mucosa is pink. Ears and nose are unremarkable. Oropharynx: There is no mucosal lesions, there is no thrush, there is no pharyngitis. Neck: Is supple, there are no nodes, or masses or tenderness. Chest: Is clear to auscultation and percussion. There are no rales, rhonchi, wheezes or rubs. Heart: Rate is slightly tachycardic, rhythm is irregular. There is no murmur, rub or gallop. Abdomen: Good bowel sounds are present. Abdomen is soft, nontender, no organomegaly or masses were appreciated. Extremities: Are symmetrical and well perfused. The right thumb is tender and painful. The right hip shows no ecchymosis and range of motion was not tested. There is no edema, there is no cellulitis, no rash. Neurologic: There are no focal neurological deficits. Cranial nerves II through XII are intact. There are no sensory or motor deficits. Psychiatric: Patients mood is calm and shows no sign of agitation. Genital: Deferred Rectal: Deferred Lab and Diagnostics Result Diagram: 05/02/16 1225 05/02/16 1225 X-Rays, CTs and MRIs PROCEDURE: X-RAY PELVIS W/LAT HIP (RT) ([id number]) INDICATIONS: fall, right hip pain TECHNIQUE: AP pelvis with lateral view(s) of the right hip(s). COMPARISON: [facility], CT, PELVIS W/O CONTRAST, 03/21/2013, 16: 15. [facility], CR, PELVIS 1 OR 2VW, 01/19/2013, 19:38. [facility], CR, XR CHEST 1VW (PORTABLE), 05/02/2016, 11:48. FINDINGS: Bones: There is a poorly seen, impacted fracture of the subcapital right femoral neck. This represents a change compared to the 2012 plain film study. There is no right hip dislocation. No definite additional focal bone abnormality can be seen. Degenerative changes are seen throughout, particularly involving the lower lumbar spine. No suspicious lytic or blastic lesions are seen. Soft tissues: The visualized bowel gas pattern is normal. No suspicious soft tissue calcifications. Postoperative changes are seen, with numerous clips, including omentectomy clips. Atherosclerotic calcification is noted. IMPRESSION: There is an impacted, subcapital right femoral neck fracture seen. Dictated by: Suresh Stewart M.D. on 05/02/2016 at 11:13 Approved by: Suresh Stewart M.D. on 05/02/2016 at 11:16 PROCEDURE: X-RAY CHEST ONE VIEW, PORTABLE ([id number]) INDICATIONS: fall, right hip pain TECHNIQUE: One view of the chest was acquired. COMPARISON: [facility], , XR PELVIS W LATERAL HIP RT, 05/02/2016, 11:48. [facility], , CHEST 2VW, 09/11/2014, 8:43. FINDINGS: Surgical changes and devices: A 3-lead pacer device is seen. Upper abdominal postoperative clips are seen involving the left upper quadrant. Lungs and pleura: On this supine examination, no large pneumothorax or large pleural effusions are seen. No focal areas of lung consolidation are seen. Low lung volumes are noted. This causes a crowded appearance to the lung markings and limits evaluation. Mediastinum: Mediastinal contours appear normal. Heart size is normal. Bones and chest wall: No suspicious bony lesions. No definite, displaced rib fractures are seen. Age-appropriate bony degenerative changes are seen. Overlying soft tissues appear unremarkable. IMPRESSION: Supine portable chest demonstrating no definite, acute cardiopulmonary process. Postoperative and senescent changes are seen. Dictated by: Suresh Stewart M.D. on 05/02/2016 at 11:16 Approved by: Suresh Stewart M.D. on 05/02/2016 at 11:19 PROCEDURE: X-RAY FINGERS, TWO VIEWS INDICATIONS: thumb pain post fall TECHNIQUE: AP hand, 2 views of the right thumb acquired. COMPARISON: None. FINDINGS: Bones: There is a transverse linear sclerosis with proximal radiolucency in the midshaft of the distal phalanx of the thumb, suggestive of compaction injury with incomplete fracture. Degenerative joint disease is evident at the IP joint , the metacarpal phalangeal joint and the basilar joint of the thumb. There is also degeneration in the scaphomultangular joint of the wrist as well as the DIP joints of the fingers, PIP joint of the fifth ray and the second metacarpal phalangeal joint. Soft tissues: No suspicious soft tissue calcifications. IMPRESSION: 1. Probable impaction injury mid shaft distal phalanx of the thumb for cortical correlation. 2. 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 Dictated by: Davis Estrada M.D. on 05/02/2016 at 13:18 Approved by: Davis Estrada M.D. on 05/02/2016 at 13:22 Cardiac Echo Impressions Echocardiogram Report Name: MARIALUISA DEVI MStudy Date : 06/10/2015 Height: 62 in Hospital Exam Location: [facility] Weight: 158 lb Gender: Female BSA: 1.7 m2 : 1930 Age: 84 yrs BP: 151/80 m mHg Reason For Study: A-FIB. History: PACEMAKER Ordering Physician: Azeb Gallego Performed By: Janis Chowdhury Referring Physician: Dr. Julian Snell Interpretation Summary Left ventricular systolic function is low normal with the ejection fraction estimated to be 55-60% with a moderate dyssynchronous contraction pattern due to the paced rhythm. There are no other obvious focal wall motion abnormalities and this is unchanged compared to the previous study. The E/E' ratio is mildly increased, suggesting possible increased filling pressures. The right ventricle is normal in size and function, and appears unchanged compared to the previous study. The right ventricular systolic pressure is estimated at 36 mmHg assuming a right atrial pressure of 3 mm Hg and is slightly higher compared to the previous study. The left atrium is severely dilated and the right atrium is moderately dilated. Both atria have mildly increased in size since the prior echo exam. There is moderate mitral regurgitation, moderate tricuspid regurgitation, and moderate pulmonic regurgitation. All are more prominent compared to the previous study. The aortic valve is mildly calcified with mild aortic stenosis that is slightly progressive compared to the previous study. There is mild aortic regurgitation that is unchanged compared to the previous study. Assessment & Plan The patient is an 85 year old female with history of endometrial carcinoma with metastatic disease s/p debulking and chemotherapy, congestive heart failure, iron deficiency anemia, atrial fibrillation, tachybradycardia syndrome s/p pacemaker/AICD implant, hypertension, and subdural hematoma in 2012, who was brought to the emergency department by EMS after she had a ground level fall prior to arrival. The patient was at the cardiology office trying to make an appointment when she turned around and fell to the ground. Per staff the patient did not hit her head or lose consciousness. She landed on her right side injuring her right hip and right thumb. Medics administered 50 IM ketamine patient was brought to [facility] emergency room where she was evaluated by Dr. Tai Hope who performed an x-ray of the right hip which showed an impacted, subcapital right femoral neck fracture. Dr. Matthew Orr was consulted orthopedic surgery. Dr. Gallego cardiology was consulted and saw the patient in the emergency room. Patient was admitted to the hospitalist service. Ground-level fall resulting in an impacted, subcapital right femoral neck fracture along with a right thumb nondisplaced, impaction distal phalanx shaft fracture today -Pain control -The patient was seen in consultation by Dr. Matthew Orr who has reviewed her case and recommends proceeding with a right hip in situ cannulated pinning when the patient has been medically optimized and cleared for right hip surgery. The proposed surgery would be less invasive than a hemiarthroplasty procedure and Dr. Gallego feels that her anticoagulation status, now that she is off Eliquis, should be satisfactorily reversed to allow for surgery as early as , 05/04/2016. -We will discontinue Eliquis anticoagulation -We will give subcutaneous Heparin 5000 units subcutaneous every 12 hours tonight and tomorrow morning and then discontinue prior to surgery -Mercado catheter is in place as patient is to be on bedrest -Continue home medications until patient is nothing by mouth Sunday night see home medication list Coronary artery disease, status post catheterization in January 2013, with 80% mid LAD, 50% OM, 50% RCA. These lesions were treated medically because of her advanced age. She had fractional flow reserve of the LAD lesion, which was 0.88 , and at that time it was interpreted as being not hemodynamically significant. Idiopathic cardiomyopathy. She has global hypokinesis. EF was 20% as of January 2013, and was up to 55% as of August 23, 2013. Her most recent echocardiogram was performed in June 2015, and showed ejection fraction of55%. There was moderate dyssynchrony to the paced rhythm. She had severe left atrial enlargement, moderate right atrial enlargement, moderate mitral regurgitation, moderate tricuspid regurgitation, moderate pulmonic regurgitation. She has mild aortic stenosis and mild aortic regurgitation, unchanged from prior study. Chronic AFib diagnosed in 2011. -Continue rate control with Cardizem and metoprolol -Hold Eliquis for surgery Pacemaker upgrade from single lead to a BiV device ([place]) inJanuary 2013. Syncope resulting in subdural hematoma. Medically treated (January2013). -Patient has a pacemaker/AICD since that time Metastatic endometrial adenocarcinoma. Also, fallopian tube carcinoma, status post debulking procedure followed by intraperitoneal chemotherapy lavage at [facility] and paclitaxel chemotherapy in 2005. Hypertension -Continue home medications with metoprolol and diltiazem. Hyperlipidemia. -Continue atorvastatin Diabetes. -Continue metformin -Check glucose before meals and at bedtime with sliding scale insulin coverage Obstructive sleep apnea. Not currently using CPAP. Gastroesophageal Reflux -Continue proton pump inhibitor . Chronic iron deficiency anemia. -Continue ferrous sulfate as at home Disposition: Patient is being admitted admitted as an inpatient and she will require greater than 2 minutes of care for the above problems. She is planning on having surgery on when the effects of her anticoagulant Eliquis wears off. . Pain Evaluation: Adequate Pain Control GI Prophylaxis: Proton Pump Inhibitor VTE Prophylaxis: Sub-Q Heparin (Unfractionated), Other (Eliquis taken at home) Resuscitation Status: CPR: Attempt Resuscitation [place] MD May 02, 2016 22:48
[2016-05-02 23:58] VITALS: BP 153/70; PULSE 88; RESP 20; O2SAT 93
[2016-05-03] VITALS (8 sets, daily range): BP systolic 117–153; BP diastolic 72–79; PULSE 63–90; RESP 16–20; O2SAT 94–95
--- NOTE | 2016-05-03 02:59 | NUR ---
Admit to Room 1018 Patient arrive to room 1018 at 1915 accompanied by ED staff. VSS. Patient in pain when transferring to bed. Patient refuses [place] for pain. States that she feels "loopy" with opioids. Tylenol 650mg administered. Blood glucose within range. No coverage needed. Call light within reach. Care continues.
[2016-05-03 06:45] LABS: BASOPHILS % (AUTO) 0.2 % (0-3); EOSINOPHILS % (AUTO) 2.4 % (0-5); MONOCYTES % (AUTO) 4.6 % (4-12); Mean Corpuscular Hemoglobin 31.1 pg (27.0-35.0); Mean Corpuscular Volume 94.9 fL (81-100); NEUTROPHILS % (AUTO) 75.2 % (40-74); Platelet Count 185 bil/L (150-400)
[2016-05-03 07:10] LABS: INR 1.08 ratio
[2016-05-03 07:35] LABS: Magnesium 1.8 mg/dL (1.6-2.6)
[2016-05-03] MEDS: Insulin LISPRO 300 Unit/3 mL Inj SUBQ SCH ×4 (08:00→22:00)
[2016-05-03] MEDS ORDERED: Magnesium Sulf 2 Gm/50mL Water 2 GM in IV Premix 1 EACH IV ONE (08:25)
--- NOTE | 2016-05-03 10:04 | PCM.PNORTH ---
Subjective Date of Service: May 03, 2016 Visit Information: Reason for Visit Rt Hip Fx, Chf Exacerbation Surgery/Surgery Date Post-Op Day # Date of Admission: May 02, 2016 at 17:59 Hospital Day # Subjective Found patient awake and alert and sitting up in bed. No complaints of active pain at this time. Patient's daughter was in attendance at bedside. We discussed all the questions that they had immediately ready this morning and provided answers. As well I discussed with them the plan postoperatively regarding therapy and mobility and discussed possible discharge to care home facility if and as needed. Patient has a current home which has a ramp into the house for easy access and she will be moving to a senior condo which is on and upper floor but does have an elevator and again easy access. Her daughter is very attentive and will be helping her through this process. Postop General: No Complaints, No Shortness of Breath, No Chest Pain Pain Management: PO Objective Exam Objective Orientation: Alert and oriented 3 and pleasant. Dressing: None Wound: None. No bruising or ecchymosis is noted about the right hip Compartments: Calf and thigh are soft and nontender Mobility/sensation: Total toe and sensation are intact of right lower extremity distally Abduction wedge: None MIRNA hose: None Mercado: Present and working Wound VAC: None Drain: None Gait: Patient is currently nonweightbearing bilaterally at this time. Vital Signs and I/O Vital Sign - Last Date Time Temp Pulse Resp B/P Pulse Ox O2 Delivery O2 Flow Rate FiO2 05/03/16 05:10 36.9 90 20 153/79 94 Nasal Cannula 2.50 Intake and Output 05/02/16 05/02/16 05/03/16 Cumulative From/Thru 15:00 23:00 07:00 05/02/16 10:47 - 05/03/16 06:40 Intake Total 951 ml 951 ml Output Total 800 ml 300 ml 1100 ml Balance -800 ml 651 ml -149 ml Intake Oral 500 ml 500 ml IV Total 451 ml 451 ml Output Urine Total 800 ml 300 ml 1100 ml # Bowel Movements 0 0 Lab & Micro Results Laboratory Tests Test 05/02/16 12:25 05/02/16 13:46 05/03/16 06:17 White Blood Count 13.1th/mm3 (3.8-10.1) 8.7th/mm3 (3.8-10.1) Red Blood Count 4.32mil/mm3 (3.90-5.20) 3.70mil/mm3 (3.90-5.20) Hemoglobin 13.4g/dL (12.0-15.6) 11.5g/dL (12.0-15.6) Hematocrit 40.6% (35.0-46.0) 35.1% (35.0-46.0) Mean Corpuscular Volume 94.0fL (81-100) 94.9fL (81-100) Mean Corpuscular Hemoglobin 31.0pg (27.0-35.0) 31.1pg (27.0-35.0) Mean Corpuscular Hemoglobin Concent 33.0% (32.0-37.0) 32.8% (32.0-37.0) Red Cell Distribution Width 13.0% (12.3-15.4) 13.0% (12.3-15.4) Platelet Count 225bil/L (150-400) 185bil/L (150-400) Neutrophils (%) (Auto) 87.1% (40-74) 75.2% (40-74) Lymphocytes (%) (Auto) 9.3% (14-46) 17.4% (14-46) Monocytes (%) (Auto) 2.5% (4-12) 4.6% (4-12) Eosinophils (%) (Auto) 0.4% (0-5) 2.4% (0-5) Basophils (%) (Auto) 0.2% (0-3) 0.2% (0-3) Sodium Level 136mEq/L (134-144) 139mEq/L (134-144) Potassium Level 4.3mEq/L (3.5-5.2) 3.8mEq/L (3.5-5.2) Chloride Level 95mEq/L (97-108) 98mEq/L (97-108) Carbon Dioxide Level 25mmol/L (18-29) 27mmol/L (18-29) Blood Urea Nitrogen 29mg/dL (8-27) 28mg/dL (8-27) Creatinine 1.39mg/dL (0.57-1.00) 1.41mg/dL (0.57-1.00) Estimat Glomerular Filtration Rate 52mL/min (>59) 51mL/min (>59) Glucose Level 177mg/dL (60-99) 106mg/dL (60-99) Calcium Level 9.7mg/dL (8.5-10.1) 9.1mg/dL (8.5-10.1) Magnesium Level 2.0mg/dL (1.6-2.6) 1.8mg/dL (1.6-2.6) Total Bilirubin 0.7mg/dL (0.0-1.2) 0.7mg/dL (0.0-1.2) Aspartate Amino Transf (AST/SGOT) 21U/L (0-50) 13U/L (0-50) Alanine Aminotransferase (ALT/SGPT) 16U/L (0-32) 11U/L (0-32) Alkaline Phosphatase 105U/L (25-165) 87U/L (25-165) Troponin T < 0.010ug/L (0.0-0.011) Pro-B-Type Natriuretic Peptide 4618pg/mL (0-738) Total Protein 8.3g/dL (6.4-8.4) 6.3g/dL (6.4-8.4) Albumin 4.5g/dL (3.4-5.0) 3.6g/dL (3.4-5.0) Hold Cespedes Top Tube Received (Received) Hold Urine Received (Received) Prothrombin Time 11.6sec (8.1-12.5) Prothromb Time International Ratio 1.08ratio Result Diagram: 05/03/1661605/03/1617 General Appearance: Alert, Oriented X3, Cooperative, No Acute Distress Extremities: No Compartment Syndrom Noted, Thigh & Calf Soft/Nontender Postop Sensory Motor: Distal Motor Intact, Movement in Toes, Distal Sensation Intact Catheters: Urethral 2 Way Mercado Assessment & Plan Impression Patient is an 85-year-old female who 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 She was counseled by Dr. Matthew Orr and he is being prepared for surgery by hospitalist service. Surgery is anticipated on if patient is medically cleared to do so Problems: Plan Post admit day # 1 from ground old fall with subsequent right femoral neck impaction fracture occurring on 05/02/2016. Patient also has suffered a right thumb distal phalanx fracture in the same incident which will be treated nonoperatively and is currently splinted. Consult was by Dr. Matthew Orr. Weight bearing status: Nonweightbearing bilaterally Mobility aid: None Immobilization: None Precautions: Do not rotate or manipulate the right hip. Physical therapy: No physical therapy at this time. Pain control: Pain control as needed DVT prophylaxis: Heparin, dosing and timing per hospitalist service. Wound care: None Infectious DZ: Mercado: Resin then working Dressing: None Drain: None Abduction wedge: None MIRNA hose: None Nursing communication: Please avoid manipulation of the right hip to avoid displacement of impacted femoral neck fracture. 2-week follow-up: TBD 6-week follow-up: TBD Plan: Patient will be optimized by hospitalist service and when this has been accomplished will be taken to the OR for in situ cannulated screw pinning at the right femoral neck anticipated OR date is Orthopedics thanks hospitalist service for their help in the medical management of this patient. Discharge instructions: TBD Discharge plan: Anticipate discharge on postoperative day #3 to care home facility. VTE Prophylaxis: Sub-Q Heparin (Unfractionated), Other (Eliquis taken at home) Resuscitation Status: CPR: Attempt Resuscitation Edison Escobar PA-C May 03, 2016 10:04
[2016-05-03] MEDS: Diltiazem CD 180 mg ER24 Capsule PO SCH ×2 (10:27→22:03)
[2016-05-03] MEDS: Pantoprazole 20 mg ER24 Tablet PO SCH (10:29)
[2016-05-03] MEDS: Calcium Carbonate (Oyster Shell) 500 mg Tablet PO SCH (10:29)
--- NOTE | 2016-05-03 10:47 | NUR ---
Case Management: IMM given and explained to pt. Katy COLIN RN
[2016-05-03] MEDS: Lactated Ringer's 1,000 ML IV SCH ×2 (10:55→15:02)
--- NOTE | 2016-05-03 17:24 | NUR ---
Social Work Initial Assessment: SW met with patient and daughter at bedside to discuss discharge plan. Patient is a 85 year old female admitted on 05/02/16 for right hip fracture and CHF exacerbation. Patient payer as Medicare and [employer]. Patient has no heel curver disability nor [place] benefits. Patient PCP as MD Gray. Patient resides in [place] alone with son residing near by to check in and daughter residing in [place]. Patient pharmacy of choice as [facility]. Patient has no HHC history. patient has a walker and cane at home. Patient has no previous SNF history. patient has AD and states POA as son aHyes, . SW discussed discharge options with patient and daughter. Plan is SNF placement, pending choice. SNF choice list provided to patient and family for review. SW to await PT eval for further discharge recommendations. SW to follow up with patient and family for SNF choice. PLAN: Possible SNF pending acceptance and choice. SW to follow for SNF choice. Margie SANCHEZ Addendum: 05/03/16 at 1728 by GENA NEVAREZ Amended: Links added.
[2016-05-03] MEDS: HYDROcodone-APAP 5-325 mg Tablet PO PRN (22:02)
[2016-05-03] MEDS: Diltiazem CD 120 mg ER24 Capsule PO SCH (22:03)
--- NOTE | 2016-05-03 23:43 | PCM.PNMED ---
Subjective Date of Service May 03, 2016 Subjective Patient is feeling okay she has only had a few Tylenol for pain control as she states that she does not move she does not hurt. Exam Vital Signs Vital Sign - Last Date Time Temp Pulse Resp B/P Pulse Ox O2 Delivery O2 Flow Rate FiO2 05/03/16 20:29 36.8 73 17 137/74 95 Nasal Cannula 2.00 Intake and Output 05/02/16 05/02/16 05/03/16 Cumulative From/Thru 15:00 23:00 07:00 05/02/16 10:47 - 05/03/16 06:40 Intake Total 951 ml 951 ml Output Total 800 ml 300 ml 1100 ml Balance -800 ml 651 ml -149 ml Intake Oral 500 ml 500 ml IV Total 451 ml 451 ml Output Urine Total 800 ml 300 ml 1100 ml # Bowel Movements 0 0 Exam General: Patient is in no apparent distress, she is lying comfortably in bed HEENT: Head is atraumatic normocephalic. Eyes: Pupils are equally round and reactive to light and accommodation. Extraocular muscles are intact. Sclera are white anicteric. Subconjunctival mucosa is pink. Ears and nose are unremarkable. Oropharynx: There is no mucosal lesions, there is no thrush, there is no pharyngitis. Neck: Is supple, there are no nodes, or masses or tenderness. Chest: Is clear to auscultation and percussion. There are no rales, rhonchi, wheezes or rubs. Heart: Rate is slightly tachycardic, rhythm is irregular. There is no murmur, rub or gallop. Abdomen: Good bowel sounds are present. Abdomen is soft, nontender, no organomegaly or masses were appreciated. Extremities: Are symmetrical and well perfused. The right thumb is tender and painful. The right hip shows no ecchymosis and range of motion was not tested. There is no edema, there is no cellulitis, no rash. Neurologic: There are no focal neurological deficits. Cranial nerves II through XII are intact. There are no sensory or motor deficits. Psychiatric: Patients mood is calm and shows no sign of agitation. Genital: Deferred Rectal: Deferred Lab and Diagnostics Result Diagram: 05/03/1661605/03/1617 X-Rays, CTs and MRIs PROCEDURE: X-RAY PELVIS W/LAT HIP (RT) ([id number]) INDICATIONS: fall, right hip pain TECHNIQUE: AP pelvis with lateral view(s) of the right hip(s). COMPARISON: [facility], CT, PELVIS W/O CONTRAST, 03/21/2013, 16: 15. [facility], CR, PELVIS 1 OR 2VW, 01/19/2013, 19:38. [facility], CR, XR CHEST 1VW (PORTABLE), 05/02/2016, 11:48. FINDINGS: Bones: There is a poorly seen, impacted fracture of the subcapital right femoral neck. This represents a change compared to the 2012 plain film study. There is no right hip dislocation. No definite additional focal bone abnormality can be seen. Degenerative changes are seen throughout, particularly involving the lower lumbar spine. No suspicious lytic or blastic lesions are seen. Soft tissues: The visualized bowel gas pattern is normal. No suspicious soft tissue calcifications. Postoperative changes are seen, with numerous clips, including omentectomy clips. Atherosclerotic calcification is noted. IMPRESSION: There is an impacted, subcapital right femoral neck fracture seen. Dictated by: Suresh Stewart M.D. on 05/02/2016 at 11:13 Approved by: Suresh Stewart M.D. on 05/02/2016 at 11:16 PROCEDURE: X-RAY CHEST ONE VIEW, PORTABLE ([id number]) INDICATIONS: fall, right hip pain TECHNIQUE: One view of the chest was acquired. COMPARISON: [facility], CR, XR PELVIS W LATERAL HIP RT, 05/02/2016, 11:48. [facility], CR, CHEST 2VW, 09/11/2014, 8:43. FINDINGS: Surgical changes and devices: A 3-lead pacer device is seen. Upper abdominal postoperative clips are seen involving the left upper quadrant. Lungs and pleura: On this supine examination, no large pneumothorax or large pleural effusions are seen. No focal areas of lung consolidation are seen. Low lung volumes are noted. This causes a crowded appearance to the lung markings and limits evaluation. Mediastinum: Mediastinal contours appear normal. Heart size is normal. Bones and chest wall: No suspicious bony lesions. No definite, displaced rib fractures are seen. Age-appropriate bony degenerative changes are seen. Overlying soft tissues appear unremarkable. IMPRESSION: Supine portable chest demonstrating no definite, acute cardiopulmonary process. Postoperative and senescent changes are seen. Dictated by: Suresh Stewart M.D. on 05/02/2016 at 11:16 Approved by: Suresh Stewart M.D. on 05/02/2016 at 11:19 PROCEDURE: X-RAY FINGERS, TWO VIEWS INDICATIONS: thumb pain post fall TECHNIQUE: AP hand, 2 views of the right thumb acquired. COMPARISON: None. FINDINGS: Bones: There is a transverse linear sclerosis with proximal radiolucency in the midshaft of the distal phalanx of the thumb, suggestive of compaction injury with incomplete fracture. Degenerative joint disease is evident at the IP joint , the metacarpal phalangeal joint and the basilar joint of the thumb. There is also degeneration in the scaphomultangular joint of the wrist as well as the DIP joints of the fingers, PIP joint of the fifth ray and the second metacarpal phalangeal joint. Soft tissues: No suspicious soft tissue calcifications. IMPRESSION: 1. Probable impaction injury mid shaft distal phalanx of the thumb for cortical correlation. 2. 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 Dictated by: Davis Estrada M.D. on 05/02/2016 at 13:18 Approved by: Davis Estrada M.D. on 05/02/2016 at 13:22 Cardiac Echo Impressions Echocardiogram Report Name: MARIALUISA DEVI MStudy Date : 06/10/2015 Height: 62 in Hospital Exam Location: [facility] Weight: 158 lb Gender: Female BSA: 1.7 m2 : 1930 Age: 84 yrs BP: 151/80 m mHg Reason For Study: A-FIB. History: PACEMAKER Ordering Physician: Azeb Gallego Performed By: Janis Chowdhury Referring Physician: Dr. Julian Snell Interpretation Summary Left ventricular systolic function is low normal with the ejection fraction estimated to be 55-60% with a moderate dyssynchronous contraction pattern due to the paced rhythm. There are no other obvious focal wall motion abnormalities and this is unchanged compared to the previous study. The E/E' ratio is mildly increased, suggesting possible increased filling pressures. The right ventricle is normal in size and function, and appears unchanged compared to the previous study. The right ventricular systolic pressure is estimated at 36 mmHg assuming a right atrial pressure of 3 mm Hg and is slightly higher compared to the previous study. The left atrium is severely dilated and the right atrium is moderately dilated. Both atria have mildly increased in size since the prior echo exam. There is moderate mitral regurgitation, moderate tricuspid regurgitation, and moderate pulmonic regurgitation. All are more prominent compared to the previous study. The aortic valve is mildly calcified with mild aortic stenosis that is slightly progressive compared to the previous study. There is mild aortic regurgitation that is unchanged compared to the previous study. Assessment & Plan The patient is an 85 year old female with history of endometrial carcinoma with metastatic disease s/p debulking and chemotherapy, congestive heart failure, iron deficiency anemia, atrial fibrillation, tachybradycardia syndrome s/p pacemaker/AICD implant, hypertension, and subdural hematoma in 2012, who was brought to the emergency department by EMS after she had a ground level fall prior to arrival. The patient was at the cardiology office trying to make an appointment when she turned around and fell to the ground. Per staff the patient did not hit her head or lose consciousness. She landed on her right side injuring her right hip and right thumb. Medics administered 50 IM ketamine patient was brought to [facility] emergency room where she was evaluated by Dr. Tai Hope who performed an x-ray of the right hip which showed an impacted, subcapital right femoral neck fracture. Dr. Matthew Orr was consulted orthopedic surgery. Dr. Gallego cardiology was consulted and saw the patient in the emergency room. Patient was admitted to the hospitalist service. Ground-level fall resulting in an impacted, subcapital right femoral neck fracture along with a right thumb nondisplaced, impaction distal phalanx shaft fracture today -Pain control -The patient was seen in consultation by Dr. Matthew Orr who has reviewed her case and recommends proceeding with a right hip in situ cannulated pinning when the patient has been medically optimized and cleared for right hip surgery. The proposed surgery would be less invasive than a hemiarthroplasty procedure and Dr. Gallego feels that her anticoagulation status, now that she is off Eliquis, should be satisfactorily reversed to allow for surgery as early as , 05/04/2016. -We will discontinue Eliquis anticoagulation -We will give subcutaneous Heparin 5000 units subcutaneous every 12 hours tonight and tomorrow morning and then discontinue prior to surgery -Mercado catheter is in place as patient is to be on bedrest -Continue home medications until patient is nothing by mouth Sunday night see home medication list Coronary artery disease, status post catheterization in January 2013, with 80% mid LAD, 50% OM, 50% RCA. These lesions were treated medically because of her advanced age. She had fractional flow reserve of the LAD lesion, which was 0.88 , and at that time it was interpreted as being not hemodynamically significant. Idiopathic cardiomyopathy. She has global hypokinesis. EF was 20% as of January 2013, and was up to 55% as of August 23, 2013. Her most recent echocardiogram was performed in June 2015, and showed ejection fraction of55%. There was moderate dyssynchrony to the paced rhythm. She had severe left atrial enlargement, moderate right atrial enlargement, moderate mitral regurgitation, moderate tricuspid regurgitation, moderate pulmonic regurgitation. She has mild aortic stenosis and mild aortic regurgitation, unchanged from prior study. Chronic AFib diagnosed in 2011. -Continue rate control with Cardizem and metoprolol -Hold Eliquis for surgery Pacemaker upgrade from single lead to a BiV device ([employer] [place]) inJanuary 2013. Syncope resulting in subdural hematoma. Medically treated (January2013). -Patient has a pacemaker/AICD since that time Metastatic endometrial adenocarcinoma. Also, fallopian tube carcinoma, status post debulking procedure followed by intraperitoneal chemotherapy lavage at [facility] and paclitaxel chemotherapy in 2005. Hypertension -Continue home medications with metoprolol and diltiazem. Hyperlipidemia. -Continue atorvastatin Diabetes. -Continue metformin -Check glucose before meals and at bedtime with sliding scale insulin coverage Obstructive sleep apnea. Not currently using CPAP. Gastroesophageal Reflux -Continue proton pump inhibitor . Chronic iron deficiency anemia. -Continue ferrous sulfate as at home Disposition: Patient is to have open reduction internal fixation of her right hip in a.m. . Pain Evaluation: Adequate Pain Control GI Prophylaxis: Proton Pump Inhibitor VTE Prophylaxis: Sub-Q Heparin (Unfractionated), Other (Eliquis taken at home) VTE Mechanical Devices: Intermittant Pneumatic CD Resuscitation Status: CPR: Attempt Resuscitation David Ng MD May 03, 2016 23:43
[2016-05-04] VITALS (19 sets, daily range): BP systolic 97–153; BP diastolic 53–84; PULSE 66–85; RESP 11–18; O2SAT 91–99
[2016-05-04] MEDS: Lactated Ringer's 1,000 ML IV SCH ×5 (01:18→18:14)
[2016-05-04] MEDS ORDERED: Lactated Ringer's 1,000 ML IV SCH ×3 (05:00→15:50)
--- NOTE | 2016-05-04 07:22 | NUR ---
NPO at midnight Norcos PO PRN for pain management given with good results. Turn Q2 with NAC assist. IVF running LR 100 ml/h at midnight. Pt aware of upcoming surgery. On 2L nc, no complaints of SOB or chest pain. Care Continues
[2016-05-04 08:00] LABS: BASOPHILS % (AUTO) 0.1 % (0-3); EOSINOPHILS % (AUTO) 2.2 % (0-5); MONOCYTES % (AUTO) 6.2 % (4-12); Mean Corpuscular Hemoglobin 30.7 pg (27.0-35.0); Mean Corpuscular Volume 95.4 fL (81-100); NEUTROPHILS % (AUTO) 73.6 % (40-74); Platelet Count 172 bil/L (150-400)
[2016-05-04] MEDS: Insulin LISPRO 300 Unit/3 mL Inj SUBQ SCH ×4 (08:00→20:54)
[2016-05-04] MEDS: Calcium Carbonate (Oyster Shell) 500 mg Tablet PO SCH (08:00)
[2016-05-04 08:23] LABS: Magnesium 2.1 mg/dL (1.6-2.6)
[2016-05-04] MEDS: Diltiazem CD 180 mg ER24 Capsule PO SCH ×2 (08:24→20:38)
[2016-05-04] MEDS: Pantoprazole 20 mg ER24 Tablet PO SCH (08:30)
[2016-05-04] MEDS ORDERED: CeFAZolin Inj 2 GM in IV Premix 1 EACH IV ONE (10:50)
--- NOTE | 2016-05-04 11:47 | NUR ---
Gave access and faxed facesheet to Tricia Leiva per [employer]
[2016-05-04] MEDS ORDERED: HYDROmorphone 2 mg/mL Inj ONE (12:41)
--- NOTE | 2016-05-04 13:20 | NUR ---
Social Work Continued Discharge Planning: SW met with patient and family, daughter Eileen, and daughter in law Adore, at bedside. Patient states procedure scheduled for 2pm today. Patient and family states discharge plans as SNF placement pending clinical course. SNF choice as [facility] as choice list provided previously. SW requested that UR specialist send referral to [facility] for possible acceptance. SW to follow on acceptance. PLAN: SNF placement. Referral sent to [facility], pending acceptance and clinical course. SW to follow. Margie SANCHEZ
--- NOTE | 2016-05-04 13:26 | NUR ---
TO OR On O2 at 2 LPM via NC. IV saline locked. BS-111. NPO since midnight. IFC intact and draining to yellow colored UO. Report given to Rachel Cm RN. Transported to the OR via a hospital bed. Family is aware of this.
--- NOTE | 2016-05-04 13:57 | PCM.HPANE ---
Patient Data Date of Service: May 04, 2016 (1297) Surgeon Admitting Provider:David Ng MD Attending Provider:David Ng MD Primary Care Physician:Sanjay Gray MD Other Provider: Reason for Visit Rt Hip Fx, Chf Exacerbation RT HIP FX, CHF EXACERBATION Ht/WT & BMI Height (Feet): 5 Height (Inches): 2.00 Weight (Kilograms): 77.100 Body Mass Index 29.29 Allergies Coded Allergies: fentanyl (Verified Allergy, Severe, VOMIT, 05/02/16) iodine (Verified Allergy, Severe, SEVERE, 05/02/16) meperidine (Verified Allergy, Severe, 05/02/16) Past Anesthesia History Anesthesia History: Denies:: Abnormal Airway, Anesthesia Reactions, Difficult Intubation, Fam Anesthesia Reaction, Fam Malignant Hypertherm, Malignant Hyperthermia Diabetes History Hx Diabetes?: Yes Current Bedside Blood Glucose: 111 MRSA MRSA: No Medications Blood Thinner: Pradaxa Last Dose Blood Thinner: May 01, 2016 (Eliquis) Hypertension Medication: Yes Home Meds Incl Beta Valarie: Yes Reported Medications Cyanocobalamin (Vitamin B-12) (Vitamin B-12)1,000 Mcg Tablet1,000 Mcg PO DAILY 05/02/16 Omeprazole 20 Mg Capsule.dr20 Mg PO DAILY Ref 0 05/02/16 Metformin 500 Mg Tqtcxy732 Mg PO DAILY Ref 0 05/02/16 Magnesium Oxide (Magnesium)250 Mg Igctue029 Mg PO DAILY 05/02/16 Lisinopril 5 Mg Tablet2.5 Mg PO DAILY #30 TABLET Ref 0 05/02/16 Furosemide 40 Mg Swfges16 Mg PO ,,, Mccartney 05/02/16 Glipizide 5 Mg Tablet5 Mg PO DAILY 30 Days 05/02/16 Apixaban (Eliquis)5 Mg Tablet5 Mg PO BID 05/02/16 Calcium Carbonate/Vitamin D3 (Calcium 500 mg Chewable Tablet)1 Each Tab.chew1 Each PO DAILY 05/02/16 Cholecalciferol (Vitamin D3) (Vitamin D)1,000 Unit Tablet1,000 Unit PO DAILY #1 BOTTLE Ref 0 09/10/14 Ferrous Sulfate 325 Mg Ktauau204 Mg PO DAILY 30 Days Ref 0 09/10/14 Venlafaxine 37.5 Mg Rpzrzd09.5 Mg PO DAILY #60 TABLET Ref 0 09/10/14 Levothyroxine 88 Mcg Otiqud08 Mcg PO DAILY 30 Days Ref 0 09/10/14 Metoprolol Tartrate 100 Mg Vpcrpf983 Mg PO BID 30 Days Ref 0 09/10/14 Furosemide 40 Mg Bzwgay89 Mg PO Mon, Wed, Sun 30 Days 09/10/14 Diltiazem ER 120 Mg Cap.er.86c779 Mg PO HS 30 Days Ref 0 09/10/14 Diltiazem ER 180 Mg Capsule.er180 Mg PO BID 30 Days Ref 0 09/10/14 Atorvastatin (Lipitor)20 Mg Tnfeat27 Mg PO HS 30 Days Ref 0 09/09/14 Discontinued Reported Medications [magnesium/zinc] No Conflict Check1 Tab PO DAILY 09/10/14 Calcium Carbonate (Calcium)500 Mg Gfkzeb447 Mg PO DAILY 09/10/14 Cyanocobalamin (Vitamin B-12) (Vitamin B-12)50 Mcg TabletUnknown Dose PO DAILY 09/10/14 Omeprazole Magnesium (Omeprazole)20 Mg Capsule.dr20 Mg PO DAILY 30 Days Ref 0 09/10/14 Dabigatran Etexilate Mesylate (Pradaxa)150 Mg Rwgnqqn112 Mg PO AM 07/18/13 History History of ENT Problems?: Yes HEENT History: Positive for:: Cataracts Sinus Problem (Seasonal sinusitis) Denies:: Abnormal Airway Difficult Intubation Dysphagia Hearing Problem Denture Type: Partial- Upper Partial- Lower Hx of Heart Problems?: Yes Cardiovascular History: Positive for:: Atrial Fibrillation Cardiac Surgery (pacemaker 2010) Congestive Heart Failure Edema Hypertension Irregular Heartbeat (A-Fib; tachy-vandana) Pacemaker (IN SITU) Denies:: AICD Chest Pain Heart Murmur Thrombophlebitis Valvular Heart Disease Hx of Respiratory Problem?: No Respiratory History: Denies:: Asthma COPD Chest Surgery Cough Dyspnea Emphysema Hemoptysis Pneumonia Tuberculosis Hx Neurologic Problems?: Yes Neurological History: Positive for:: 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 Hx Musculoskeletal Problems?: Yes Musculoskeletal History: Positive for:: Musculoskeletal Trauma (fainted at home) Denies:: Back Injury Joint Replacement Hx of Psycho/Social Problems?: No Psycho Social History: Denies:: Anxiety Bipolar Disorder Hx Depression Suicide Attempt Hx Surgeries?: Yes (Hysterectomy, Appendectomy) Hx Any Other Health Problems?: Yes Other History: Positive for:: Cancer (Ovarian; endometrial, skin) Hospitalization (Chemo rx, pac removed) Thyroid Disease (hypothyroid) Denies:: Endocrine Disease History Blood Transfusions: Positive for:: Accept Blood Products? Blood Transfusions Denies:: Blood Transfuse Reaction Hx Diabetes: YesBedside Blood Glucose: 111 Hx Alcohol Use: Yes (she is to have a drink Jukely at and when she was younger drink more but never had a drinking problem. She quit drinking in 1997)Hx Substance Use: No Smoking Status: Former Smoker (smoked one half pack a day between 16 and 36. ) Have You Smoked inLast 12 mo: No (QUIT 1961) Stop/Bang Treated for Sleep Apnea?: Yes Do You Have a CPAP Machine?: Yes S-Snoring: Do You Snore Loudly: No T-Tired: feel tired, fatigued: Yes O-Obsered: Observed not breath: Yes P-Blood Pressure: treated: Yes B- Body Mass Index > 35 kg/m2: No A- Age over 50: Yes N- Neck Large Circumference: No G- Gender Male: No KRISTEL Total Score: 3 KRISTEL Risk Assessment: High Risk, =/>3 Yes Risk Assessment Category Category 1A: Patient has history of documented sleep apnea, and HAS NOT received any narcotic, sedative or anesthesia administration during this stay. Category 1B: Patient has history of documented sleep apnea, and HAS received any narcotic , sedative or anesthesia administration during this stay Category 2: Patient has SUSPECTED Obstructive Sleep Apnea, and HAS received any narcotic , sedative or anesthesia administration during this stay. Category 3: Patient has SUSPECTED Obstructive Sleep Apnea and HAS NOT received narcotic, sedative or anesthesia administration during this stay. Category 4: Outpatient in Procedural Areas with known sleep apnea or who screen positive for High Risk via the STOP/BANG questionnaire. Exam Exam Vital Signs Vital Signs Date Time Temp Pulse Resp B/P Pulse Ox O2 Delivery O2 Flow Rate FiO2 05/04/16 10:57 36.3 71 16 118/71 95 Nasal Cannula 05/04/16 09:00 70 05/04/16 08:30 Supplement Oxygen 05/04/16 08:22 36.8 80 153/84 99 Nasal Cannula 2.00 05/04/16 07:13 85 General Appearance: Alert, Oriented X3, Cooperative HEENT/AIRWAY: MP 2 Lungs: Clear to Auscultation Heart: Exam Unremarkable Meds/Labs/Diagnostics Admission Meds Current Medications Atorvastatin Calcium (Lipitor) 10 mg HS PO Last administered on 05/03/16 22:03 ; Start 05/03/16 at 21:00 Furosemide (Lasix) 40 mg SuTuThSa@0830 PO Last administered on 05/04/16 08:25; Start 05/04/16 at 08:30 Diltiazem HCl (Cardizem CD) 120 mg HS PO Last administered on 05/03/16 22:03; Start 05/03/16 at 21:00 Bedside Blood Glucose: 111 Labs Test 05/02/16 12:25 05/02/16 13:46 05/03/16 06:17 05/04/16 07:17 Troponin T < 0.010ug/L (0.0-0.011) Pro-B-Type Natriuretic Peptide 4618pg/mL (0-738) Hold Cespedes Top Tube Received (Received) Hold Urine Received (Received) Prothrombin Time 11.6sec (8.1-12.5) Prothromb Time International Ratio 1.08ratio Hemoglobin A1c 6.3% (4.8-5.6) White Blood Count 7.4th/mm3 (3.8-10.1) Red Blood Count 3.71mil/mm3 (3.90-5.20) Hemoglobin 11.4g/dL (12.0-15.6) Hematocrit 35.4% (35.0-46.0) Mean Corpuscular Volume 95.4fL (81-100) Mean Corpuscular Hemoglobin 30.7pg (27.0-35.0) Mean Corpuscular Hemoglobin Concent 32.2% (32.0-37.0) Red Cell Distribution Width 13.1% (12.3-15.4) Platelet Count 172bil/L (150-400) Neutrophils (%) (Auto) 73.6% (40-74) Lymphocytes (%) (Auto) 17.5% (14-46) Monocytes (%) (Auto) 6.2% (4-12) Eosinophils (%) (Auto) 2.2% (0-5) Basophils (%) (Auto) 0.1% (0-3) Sodium Level 138mEq/L (134-144) Potassium Level 4.0mEq/L (3.5-5.2) Chloride Level 99mEq/L (97-108) Carbon Dioxide Level 26mmol/L (18-29) Blood Urea Nitrogen 28mg/dL (8-27) Creatinine 1.23mg/dL (0.57-1.00) Estimat Glomerular Filtration Rate 60mL/min (>59) Glucose Level 109mg/dL (60-99) Calcium Level 8.7mg/dL (8.5-10.1) Magnesium Level 2.1mg/dL (1.6-2.6) Total Bilirubin 0.5mg/dL (0.0-1.2) Aspartate Amino Transf (AST/SGOT) 13U/L (0-50) Alanine Aminotransferase (ALT/SGPT) 8U/L (0-32) Alkaline Phosphatase 78U/L (25-165) Total Protein 5.9g/dL (6.4-8.4) Albumin 3.3g/dL (3.4-5.0) Plan Impression Patient chart reviewed, patient interviewed and anesthestic plan with risks, benefits, and alternatives discussed, and informed consent obtained. NPO Status: >8hrs ASA Physical Status: ASA3 Severe Disease Anesthetic Support Modalities: Arterial Line Anesthetic Plan: GA (off eliquis less than 36 hrs and pt refuses SAB anyway.) Bene/Risks/Altern/Consents: Yes HP Complete Prior to Induction: Yes Other on diltiazem and metoprolol. CIED form on hand -ok to use magnet, no reprogramming. Consented pt for GA and preinduction AL. Will try to control pain with dilaudid and/or morphine prn. Ronnie Hsu MD May 04, 2016 13:57
[2016-05-04] MEDS ORDERED: Lactated Ringer's 1,000 ML IV ONE (14:25)
[2016-05-04] MEDS ORDERED: Ropivacaine-PF 0.5% 30 mL Inj INFILTRATE ONE (15:10)
--- NOTE | 2016-05-04 15:49 | PCM.ANEP2 ---
Post Anesthesia Evaluation ASA/CMS Post Anesthesia VS in Patient's Normal Range?: Yes Resp Stable; Airway Patent?: Yes CV Function & Hydration Stable: Yes Mental Status Recovered?: Yes Pain control Satisfactory?: Yes N/V Control Satisfactory?: Yes Ronnie Hsu MD May 04, 2016 15:49
--- NOTE | 2016-05-04 15:49 | PCM.ANEP1 ---
Post Anesthesia Phase 1 PACU Phase 1 Assessment Date of Service: May 04, 2016 (1350) Vital Signs 70, 10, 95%, 142/65, 37.4 Vital Signs Date Time Temp Pulse Resp B/P Pulse Ox O2 Delivery O2 Flow Rate FiO2 05/04/16 10:57 36.3 71 16 118/71 95 Nasal Cannula 05/04/16 09:00 70 05/04/16 08:30 Supplement Oxygen 05/04/16 08:22 36.8 80 153/84 99 Nasal Cannula 2.00 Anesthetic Administered: GA Level of Alertness: Awake, talking MONCADA's with Equal Strength: Yes Pain: No Pain Scale Score: 0 Nausea or Vomiting: No Oxygen Delivery: Simple Mask Lungs: Clear to Auscultation Dermatome Level: Full Sensation Summary UNEVENTFUL GA, AL Ronnie Hsu MD May 04, 2016 15:49
[2016-05-04] MEDS ORDERED: Dexamethasone 4 mg/mL Inj IVPUSH PRN (15:50)
[2016-05-04] MEDS ORDERED: Ondansetron 2 mg/mL 2 mL Inj IVPUSH PRN (15:50)
[2016-05-04] MEDS ORDERED: EPHEDrine Sulfate 50 mg/mL Inj IVPUSH PRN (15:50)
[2016-05-04] MEDS ORDERED: Phenylephrine 10,000 mCg/mL Inj IVPUSH PRN (15:50)
[2016-05-04] MEDS ORDERED: Lactated Ringer's 500 ML IV PRN ×2 (15:50)
--- NOTE | 2016-05-04 15:52 | PCM.ORTHOB ---
Immediate Operative Note Date of Service: May 04, 2016 Pre Operative Diagnosis Right hip femoral neck fracture Post Operative Diagnosis Same Procedure Right hip in situ cannulated pinning Surgeon Surgeon: Matthew Orr M.D. Assistants: Edison Escobar PA-C Findings Right hip valgus impacted femoral neck fracture. Satisfactorily stabilized in situ with 3 partially threaded 7.3 mm Synthes cannulated screws. Intraoperative fluoroscopic views confirmed satisfactory stabilization of the femoral neck fracture without any intra-articular penetration from our placed hardware. Grafts, Implants: Implants-See Implant Record Complications There were no periprocedural complications identified. Condition Stable Anesthetic Administered: GA Drains: None Catheters: Urethral 2 Way Mercado Output, Estimated Blood Loss: 10 Blood Admin during surgery: No Surgical Cast or Splint: None Surgical Specimen Removed: No Surgical Specimen sent to Path: No Post Operative Plan The patient will be mobilized immediately. She will be restricted to touchdown weightbearing through her right lower extremity for the next 6 weeks postop. The patient will be started on Lovenox 40 mg subcutaneous daily for the first 2 weeks and then converted to enteric-coated aspirin 325 mg twice a day for an additional 4 weeks after the Lovenox has been discontinued for DVT prophylaxis. The patient will initiate fracture rehabilitation through physical therapy and occupational therapy while in the hospital and continue this after discharge , likely to his care home facility. The patient will be seen as an outpatient in the orthopedic clinic on or after postoperative day #12 for skin staple removal. Repeat x-rays of the patient's right hip will be obtained at 6 weeks postop when I anticipate we should be able to advance her hip fracture rehabilitation and allow progressive weightbearing through her right lower extremity. Matthew Orr MD May 04, 2016 15:52
--- NOTE | 2016-05-04 16:01 | PCM.ORTHOP ---
Orthopedic Operative Report Date of Service: May 04, 2016 Pre Operative Diagnosis Right hip femoral neck fracture Post Operative Diagnosis Same Procedure Right hip in situ cannulated pinning Surgeon Surgeon: Matthew Orr M.D. 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 Patient sustained closed injuries to her right hip and thumb. X-rays of the patient's right thumb revealed a nondisplaced distal phalanx fracture. The patient's right hip x-rays revealed a moderately valgus impacted femoral neck fracture. The patient's anticoagulated status necessitated her right hip surgery to be delayed until 05/04/2016 while she was medically optimized by the hospitalist service. The patient presents today for right hip femoral neck fracture in situ cannulated pinning. The skilled assistance of a physician's assistant manager quality management, Edison Escobar PA-C, was necessary for the successful completion of this case. The PA was essential for the proper positioning, manipulation of instruments, proper exposure, manipulation of tissues and wound closure. Findings Right hip valgus impacted femoral neck fracture. Satisfactorily stabilized in situ with 3 partially threaded 7.3 mm Synthes cannulated screws. Intraoperative fluoroscopic views confirmed satisfactory stabilization of the femoral neck fracture without any intra-articular penetration from our placed hardware. Details of Procedure The patient was brought to the OR where she was given a general anesthetic. She is placed in a supine position on the fracture table with gentle in-line well-padded boot traction applied to the right lower extremity. The procedure was performed under fluoroscopic guidance. The right hip and lower extremity received a trauma scrub and then were prepped and draped in the usual sterile fashion. A 3 cm longitudinal lateral incision was placed over the proximal thigh just distal to the level of the lesser trochanter. The incision was taken down through subcutaneous tissues and through the fascia sim to expose the proximal lateral cortex of the greater trochanter. We placed 3 threaded tip guidewires in the greater trochanter, in an inverted triangular pattern with apex posterior, just proximal to the level of the lesser trochanter. The guidewires were drilled up through the center of the femoral neck and into the subchondral bone of the femoral head. We then placed by hand over the previously placed guidewires 3 partially-threaded Synthes 7.3 mm cannulated screws. The threaded portion of the screws were advanced into the femoral head subchondral bone, medial to the femoral neck fracture site. Fixation and stabilization of the femoral neck fracture was assessed to be satisfactory. Intraoperative fluoroscopic views confirmed satisfactory positioning and fixation without any intra-articular violation from our placed hardware. The wound was then thoroughly irrigated and closed. The fascial sim was closed with interrupted #1 Vicryl suture. 2-0 Vicryl interrupted sutures were used to close the subcutaneous tissues. Braxton used to close the skin. 30 mL of half percent ropivacaine was instilled into the wound at the end of the case. The wound was dressed with Xeroform and dry gauze dressings. The patient was gently transferred to her postoperative bed and taken back to PACU in stable and satisfactory condition. There were no complications. Patient tolerated the procedure well. Grafts, Implants: Implants-See Implant Record Complications There were no periprocedural complications identified. Condition Stable Anesthetic Administered: GA Drains: None Catheters: Urethral 2 Way Mercado Output, Estimated Blood Loss: 10 Blood Admin during surgery: No Surgical Cast or Splint: None Surgical Specimen Removed: No Specimen sent to Pathology: No Post Operative Plan The patient will be mobilized immediately. She will be restricted to touchdown weightbearing through her right lower extremity for the next 6 weeks postop. The patient will be started on Lovenox 40 mg subcutaneous daily for the first 2 weeks and then converted to enteric-coated aspirin 325 mg twice a day for an additional 4 weeks after the Lovenox has been discontinued for DVT prophylaxis. The patient will initiate fracture rehabilitation through physical therapy and occupational therapy while in the hospital and continue this after discharge , likely to his nursing home facility. The patient will be seen as an outpatient in the orthopedic clinic on or after postoperative day #12 for skin staple removal. Repeat x-rays of the patient's right hip will be obtained at 6 weeks postop when I anticipate we should be able to advance her hip fracture rehabilitation and allow progressive weightbearing through her right lower extremity. copies to: Sanjay Gray MD; Azeb Gallego MD; Matthew Orr MD, Michael G.E MD May 04, 2016 16:01
[2016-05-04] MEDS: HYDROmorphone 1 mg/mL Inj IVPUSH PRN ×2 (16:40→16:45)
--- NOTE | 2016-05-04 18:16 | NUR ---
POST-OP Patient received from PACU via a hospital bed. On O2 at 4 LPM via NC. IVF ongoing at this time. Dressing on her R hip is CDI. Denies numbness/tingling over her BLE. Able to wiggle her toes. SCD's are on. Patient placed back on tele. Per teletype technician patient is paced; HR-70's. IFC intact and draining to ad colored UO. Patient denies pain/nausea/SOB at this time. Refused to be turned at this time. Unable to assess back area. Oriented to room and call light. (Pls. refer to post-op grid for assessments).
[2016-05-04] MEDS: Diltiazem CD 120 mg ER24 Capsule PO SCH (20:40)
[2016-05-04] MEDS: HYDROcodone-APAP 5-325 mg Tablet PO PRN (20:47)
--- NOTE | 2016-05-04 23:54 | PCM.PNMED ---
Subjective Date of Service May 04, 2016 Subjective Patient was seen postoperatively and is in no apparent distress. She only has pain when she moves. She has no other new complaints. Exam Vital Signs Vital Sign - Last Date Time Temp Pulse Resp B/P Pulse Ox O2 Delivery O2 Flow Rate FiO2 05/04/16 23:39 36.5 66 18 97/53 95 Nasal Cannula 4.00 Intake and Output 05/03/16 05/03/16 05/04/16 Cumulative From/Thru 15:00 23:00 07:00 05/02/16 10:47 - 05/04/16 05:12 Intake Total 440 ml 800 ml 2191 ml Output Total 750 ml 300 ml 2150 ml Balance -310 ml 500 ml 41 ml Intake Oral 440 ml 800 ml 1740 ml IV Total 451 ml Output Urine Total 750 ml 300 ml 2150 ml # Bowel Movements 0 0 Exam General: Patient is in no apparent distress, she is lying comfortably in bed HEENT: Head is atraumatic normocephalic. Eyes: Pupils are equally round and reactive to light and accommodation. Extraocular muscles are intact. Sclera are white anicteric. Subconjunctival mucosa is pink. Ears and nose are unremarkable. Oropharynx: There is no mucosal lesions, there is no thrush, there is no pharyngitis. Neck: Is supple, there are no nodes, or masses or tenderness. Chest: Is clear to auscultation and percussion. There are no rales, rhonchi, wheezes or rubs. Heart: Rate is slightly tachycardic, rhythm is irregular. There is no murmur, rub or gallop. Abdomen: Good bowel sounds are present. Abdomen is soft, nontender, no organomegaly or masses were appreciated. Extremities: Remain symmetrical and well perfused. The right thumb is secured safely in a splint. There is no edema, there is no cellulitis, no rash. Neurologic: There are no focal neurological deficits. Cranial nerves II through XII are intact. There are no sensory or motor deficits. Psychiatric: Patients mood is calm and shows no sign of agitation. Genital: Deferred Rectal: Deferred Lab and Diagnostics Result Diagram: 05/04/16 0717 05/04/16 0717 X-Rays, CTs and MRIs PROCEDURE: X-RAY PELVIS W/LAT HIP (RT) ([id number]) INDICATIONS: fall, right hip pain TECHNIQUE: AP pelvis with lateral view(s) of the right hip(s). COMPARISON: [facility], CT, PELVIS W/O CONTRAST, 03/21/2013, 16: 15. [facility], CR, PELVIS 1 OR 2VW, 01/19/2013, 19:38. [facility], CR, XR CHEST 1VW (PORTABLE), 05/02/2016, 11:48. FINDINGS: Bones: There is a poorly seen, impacted fracture of the subcapital right femoral neck. This represents a change compared to the 2012 plain film study. There is no right hip dislocation. No definite additional focal bone abnormality can be seen. Degenerative changes are seen throughout, particularly involving the lower lumbar spine. No suspicious lytic or blastic lesions are seen. Soft tissues: The visualized bowel gas pattern is normal. No suspicious soft tissue calcifications. Postoperative changes are seen, with numerous clips, including omentectomy clips. Atherosclerotic calcification is noted. IMPRESSION: There is an impacted, subcapital right femoral neck fracture seen. Dictated by: Suresh Stewart M.D. on 05/02/2016 at 11:13 Approved by: Suresh Stewart M.D. on 05/02/2016 at 11:16 PROCEDURE: X-RAY CHEST ONE VIEW, PORTABLE ([id number]) INDICATIONS: fall, right hip pain TECHNIQUE: One view of the chest was acquired. COMPARISON: [facility], CR, XR PELVIS W LATERAL HIP RT, 05/02/2016, 11:48. [facility], CR, CHEST 2VW, 09/11/2014, 8:43. FINDINGS: Surgical changes and devices: A 3-lead pacer device is seen. Upper abdominal postoperative clips are seen involving the left upper quadrant. Lungs and pleura: On this supine examination, no large pneumothorax or large pleural effusions are seen. No focal areas of lung consolidation are seen. Low lung volumes are noted. This causes a crowded appearance to the lung markings and limits evaluation. Mediastinum: Mediastinal contours appear normal. Heart size is normal. Bones and chest wall: No suspicious bony lesions. No definite, displaced rib fractures are seen. Age-appropriate bony degenerative changes are seen. Overlying soft tissues appear unremarkable. IMPRESSION: Supine portable chest demonstrating no definite, acute cardiopulmonary process. Postoperative and senescent changes are seen. Dictated by: Suresh Stewart M.D. on 05/02/2016 at 11:16 Approved by: Suresh Stewart M.D. on 05/02/2016 at 11:19 PROCEDURE: X-RAY FINGERS, TWO VIEWS INDICATIONS: thumb pain post fall TECHNIQUE: AP hand, 2 views of the right thumb acquired. COMPARISON: None. FINDINGS: Bones: There is a transverse linear sclerosis with proximal radiolucency in the midshaft of the distal phalanx of the thumb, suggestive of compaction injury with incomplete fracture. Degenerative joint disease is evident at the IP joint , the metacarpal phalangeal joint and the basilar joint of the thumb. There is also degeneration in the scaphomultangular joint of the wrist as well as the DIP joints of the fingers, PIP joint of the fifth ray and the second metacarpal phalangeal joint. Soft tissues: No suspicious soft tissue calcifications. IMPRESSION: 1. Probable impaction injury mid shaft distal phalanx of the thumb for cortical correlation. 2. 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 Dictated by: Davis Estrada M.D. on 05/02/2016 at 13:18 Approved by: Davis Estrada M.D. on 05/02/2016 at 13:22 Cardiac Echo Impressions Echocardiogram Report Name: MARIALUISA DEVI MStudy Date : 06/10/2015 Height: 62 in Hospital Exam Location: [facility] Weight: 158 lb Gender: Female BSA: 1.7 m2 : 1930 Age: 84 yrs BP: 151/80 m mHg Reason For Study: A-FIB. History: PACEMAKER Ordering Physician: Azeb Gallego Performed By: Janis Chowdhury Referring Physician: Dr. Julian Snell Interpretation Summary Left ventricular systolic function is low normal with the ejection fraction estimated to be 55-60% with a moderate dyssynchronous contraction pattern due to the paced rhythm. There are no other obvious focal wall motion abnormalities and this is unchanged compared to the previous study. The E/E' ratio is mildly increased, suggesting possible increased filling pressures. The right ventricle is normal in size and function, and appears unchanged compared to the previous study. The right ventricular systolic pressure is estimated at 36 mmHg assuming a right atrial pressure of 3 mm Hg and is slightly higher compared to the previous study. The left atrium is severely dilated and the right atrium is moderately dilated. Both atria have mildly increased in size since the prior echo exam. There is moderate mitral regurgitation, moderate tricuspid regurgitation, and moderate pulmonic regurgitation. All are more prominent compared to the previous study. The aortic valve is mildly calcified with mild aortic stenosis that is slightly progressive compared to the previous study. There is mild aortic regurgitation that is unchanged compared to the previous study. Assessment & Plan The patient is an 85 year old female with history of endometrial carcinoma with metastatic disease s/p debulking and chemotherapy, congestive heart failure, iron deficiency anemia, atrial fibrillation, tachybradycardia syndrome s/p pacemaker/AICD implant, hypertension, and subdural hematoma in 2012, who was brought to the emergency department by EMS after she had a ground level fall prior to arrival. The patient was at the cardiology office trying to make an appointment when she turned around and fell to the ground. Per staff the patient did not hit her head or lose consciousness. She landed on her right side injuring her right hip and right thumb. Medics administered 50 IM ketamine patient was brought to [facility] emergency room where she was evaluated by Dr. Tai Hope who performed an x-ray of the right hip which showed an impacted, subcapital right femoral neck fracture. Dr. Matthew Orr was consulted orthopedic surgery. Dr. Gallego cardiology was consulted and saw the patient in the emergency room. Patient was admitted to the hospitalist service. Ground-level fall resulting in an impacted, subcapital right femoral neck fracture along with a right thumb nondisplaced, impaction distal phalanx shaft fracture today -Status post in situ right hip cannulated pinning using 3 partially-threaded Synthes 7.3 mm cannulated screws. The threaded portion of the screws were advanced into the femoral head subchondral bone, medial to the femoral neck fracture site. -Pain control per surgery -We will discontinue Eliquis anticoagulation until after surgery -Mercado catheter is in place as patient is to be on bedrest -Continue home medications postoperatively and began Eliquis when okay with surgery Coronary artery disease, status post catheterization in January 2013, with 80% mid LAD, 50% OM, 50% RCA. These lesions were treated medically because of her advanced age. She had fractional flow reserve of the LAD lesion, which was 0.88 , and at that time it was interpreted as being not hemodynamically significant. Idiopathic cardiomyopathy. She has global hypokinesis. EF was 20% as of January 2013, and was up to 55% as of August 23, 2013. Her most recent echocardiogram was performed in June 2015, and showed ejection fraction of55%. There was moderate dyssynchrony to the paced rhythm. She had severe left atrial enlargement, moderate right atrial enlargement, moderate mitral regurgitation, moderate tricuspid regurgitation, moderate pulmonic regurgitation. She has mild aortic stenosis and mild aortic regurgitation, unchanged from prior study. Chronic AFib diagnosed in 2011. -Continue rate control with Cardizem and metoprolol -Hold Eliquis for surgery Pacemaker upgrade from single lead to a BiV device ([place]) inJanuary 2013. Syncope resulting in subdural hematoma. Medically treated (January2013). -Patient has a pacemaker/AICD since that time Metastatic endometrial adenocarcinoma. Also, fallopian tube carcinoma, status post debulking procedure followed by intraperitoneal chemotherapy lavage at [facility] and paclitaxel chemotherapy in 2005. Hypertension -Continue home medications with metoprolol and diltiazem. Hyperlipidemia. -Continue atorvastatin Diabetes. -Continue metformin -Check glucose before meals and at bedtime with sliding scale insulin coverage Obstructive sleep apnea. Not currently using CPAP. Gastroesophageal Reflux -Continue proton pump inhibitor . Chronic iron deficiency anemia. -Continue ferrous sulfate as at home Disposition: Depending on postoperative course. Dr. Doty following a.m. . Pain Evaluation: Adequate Pain Control GI Prophylaxis: Proton Pump Inhibitor VTE Prophylaxis: Sub-Q Heparin (Unfractionated), Other (Eliquis taken at home) VTE Mechanical Devices: Intermittant Pneumatic CD Resuscitation Status: CPR: Attempt Resuscitation David Ng MD May 04, 2016 23:54
[2016-05-05 04:32] VITALS: BP 113/68; PULSE 70; RESP 18; O2SAT 96
[2016-05-05 04:55] VITALS: PULSE 77
[2016-05-05] MEDS: HYDROcodone-APAP 5-325 mg Tablet PO PRN ×4 (06:35→21:45)
[2016-05-05] MEDS: Lactated Ringer's 1,000 ML IV SCH ×3 (06:36→11:19)
[2016-05-05 06:38] LABS: BASOPHILS % (AUTO) 0.1 % (0-3); EOSINOPHILS % (AUTO) 1.8 % (0-5); MONOCYTES % (AUTO) 5.7 % (4-12); Mean Corpuscular Hemoglobin 30.7 pg (27.0-35.0); Mean Corpuscular Volume 95.2 fL (81-100); NEUTROPHILS % (AUTO) 79.1 % (40-74); Platelet Count 167 bil/L (150-400)
--- NOTE | 2016-05-05 06:49 | NUR ---
Bedrest Mercado patent and draining pale yellow urine. IVF running LR at 100. Pt complains of pain during repositioning and turning- Norcos provided. Pt is calm and cooperative for cares this shift. No complaints of SOB, chest pain, dizziness. Dressing CDI, CSM intact to BLE with pain in R leg reducing movement. Care continues
[2016-05-05 06:57] LABS: Magnesium 1.8 mg/dL (1.6-2.6)
--- NOTE | 2016-05-05 07:00 | PCM.PNORTH ---
Subjective Date of Service: May 05, 2016 Visit Information: Reason for Visit Rt Hip Fx, Chf Exacerbation Surgery/Surgery Date Post-Op Day # Date of Admission: May 02, 2016 at 17:59 Hospital Day # Subjective Found patient awake and alert this morning and resting comfortably in bed and well positioned. No complaints of pain at this time. Discussed performance with physical therapy and encouraged patient to be active with therapy to increase her mobility. Discussed likely discharged to [facility] on postop day #3, 05/07/2016. Patient is aware of this and prepared for this process. I have discussed patient's weightbearing status and demonstrated gait using a front- wheeled walker. Patient has a very attentive daughter involved with her care and plans ultimately to return to her home which does have a ramp for access and no steps when she is inside. Postop General: No Complaints, No Shortness of Breath, No Chest Pain Pain Management: PO Objective Exam Objective Orientation: Alert and oriented 3 and pleasant. Dressing: Interoperative dressing is clean dry and intact. Wound: Wound is not observed today. Compartments: Calf and thigh are soft and nontender. Mobility/sensation: Toe wiggle and sensation are intact in right lower extremity distally. Abduction wedge: None MIRNA hose: None Mercado: Present and working Wound VAC: None Drain: None Gait: No gait as of this time. Vital Signs and I/O Vital Sign - Last Date Time Temp Pulse Resp B/P Pulse Ox O2 Delivery O2 Flow Rate FiO2 05/05/16 04:55 77 05/05/16 04:32 36.8 18 113/68 96 Nasal Cannula 4.00 Intake and Output 05/04/16 05/04/16 05/05/16 Cumulative From/Thru 15:00 23:00 07:00 05/02/16 10:47 - 05/05/16 06:09 Intake Total 1125 ml 50 ml 50 ml 3416 ml Output Total 1470 ml 300 ml 3920 ml Balance 1125 ml -1420 ml -250 ml -504 ml Intake Oral 0 ml 50 ml 1790 ml IV Total 1125 ml 50 ml 1626 ml Output Urine Total 1450 ml 300 ml 3900 ml Estimated Blood Loss 20 ml 20 ml # Bowel Movements 0 Lab & Micro Results Laboratory Tests Test 05/04/16 07:17 05/05/16 06:20 White Blood Count 7.4th/mm3 (3.8-10.1) 7.7th/mm3 (3.8-10.1) Red Blood Count 3.71mil/mm3 (3.90-5.20) 3.78mil/mm3 (3.90-5.20) Hemoglobin 11.4g/dL (12.0-15.6) 11.6g/dL (12.0-15.6) Hematocrit 35.4% (35.0-46.0) 36.0% (35.0-46.0) Mean Corpuscular Volume 95.4fL (81-100) 95.2fL (81-100) Mean Corpuscular Hemoglobin 30.7pg (27.0-35.0) 30.7pg (27.0-35.0) Mean Corpuscular Hemoglobin Concent 32.2% (32.0-37.0) 32.2% (32.0-37.0) Red Cell Distribution Width 13.1% (12.3-15.4) 13.0% (12.3-15.4) Platelet Count 172bil/L (150-400) 167bil/L (150-400) Neutrophils (%) (Auto) 73.6% (40-74) 79.1% (40-74) Lymphocytes (%) (Auto) 17.5% (14-46) 12.9% (14-46) Monocytes (%) (Auto) 6.2% (4-12) 5.7% (4-12) Eosinophils (%) (Auto) 2.2% (0-5) 1.8% (0-5) Basophils (%) (Auto) 0.1% (0-3) 0.1% (0-3) Sodium Level 138mEq/L (134-144) Potassium Level 4.0mEq/L (3.5-5.2) Chloride Level 99mEq/L (97-108) Carbon Dioxide Level 26mmol/L (18-29) Blood Urea Nitrogen 28mg/dL (8-27) Creatinine 1.23mg/dL (0.57-1.00) Estimat Glomerular Filtration Rate 60mL/min (>59) Glucose Level 109mg/dL (60-99) Calcium Level 8.7mg/dL (8.5-10.1) Magnesium Level 2.1mg/dL (1.6-2.6) Total Bilirubin 0.5mg/dL (0.0-1.2) Aspartate Amino Transf (AST/SGOT) 13U/L (0-50) Alanine Aminotransferase (ALT/SGPT) 8U/L (0-32) Alkaline Phosphatase 78U/L (25-165) Total Protein 5.9g/dL (6.4-8.4) Albumin 3.3g/dL (3.4-5.0) Result Diagram: 05/04/1671605/04/16716 General Appearance: Alert, Oriented X3, Cooperative, No Acute Distress Extremities: No Compartment Syndrom Noted, Thigh & Calf Soft/Nontender Postop Sensory Motor: Distal Motor Intact, Movement in Toes, Distal Sensation Intact Activity: Activity per PT, Ambulate with PT (touchdown weightbearing on the right lower extremity with front wheeled walker 6 weeks postop.) Catheters: Urethral 2 Way Mercado (Mercado in place and working. DC Mercado postop day #1 after first therapy session. 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 She underwent a right hip pinning on 05/04/[address] Matthew Orr. She has family in attendance and anticipate discharged to half-way facility with eventual return to her home. Problems: Plan Postop day # 1 from right hip femoral neck impaction fracture occurring on 05/02/2016 with subsequent right hip pinning performed on 05/04/[address] Matthew Orr. Weight bearing status: Touchdown weightbearing on the right lower extremity 6 weeks postop. Mobility aid: Front-wheeled walker Immobilization: None Precautions: Physical therapy: Continue formal physical therapy for mobility gait and safety. Pain control: Continue by mouth pain control with Bartlett 5 mg. Avoid IV pain medications if at all possible. DVT prophylaxis: Lovenox 40 mg subcutaneous daily 2 weeks postop with transition to ASA 325 DC by mouth twice a day times and additional 4 weeks postop totaling 6 weeks postoperative DVT prophylaxis. Wound care: Keep wound clean dry and intact until seen in office at 2 weeks. Infectious DZ: None Mercado: Present and working. Mercado should be DC'd today on postop day #1 after first therapy session. Patient may use BSC. Dressing: Interoperative dressing is clean dry and intact. Dressing will be changed to island type dressing with the ends trimmed for ventilation to promote drying of the surgical wound on postop day #2. Drain: None Abduction wedge: None MIRNA hose: MIRNA hose will be ordered today. Nursing communication: Nursing please discontinue Mecrado today on postop day #1 after first therapy session. Patient may use B SC. Nursing please measure and fit bilateral thigh-high MIRNA hose today. 2-week follow-up: Follow-up in 2 weeks at [facility] orthopedic clinic with mid-level provider for wound check and staple removal. 6-week follow-up: Follow-up in 6 weeks at [facility] orthopedic clinic with Dr. Matthew Orr with AP pelvis and right crosstable lateral hip x-rays on arrival Plan: Patient will remain in-house for 3 days and receive formal physical therapy twice a day and discharged to half-way facility on postop day #3 , 05/07/2016. Orthopedics thanks hospitalist service for their help in the medical management of this patient. Discharge instructions: Touchdown weightbearing only on the right lower extremity 6 weeks postop and using a front wheeled walker for mobility aid. Wound and dressing should be kept clean and dry and covered until seen in office at 2 weeks. Discharge plan: Anticipated discharge to half-way facility on postop day #3, 05/07/2016. VTE Prophylaxis: Sub-Q Enoxaparin (Lovenox 40 mg subcutaneous daily 2 weeks postop with transition to ASA 325 mg EC by mouth twice a day for additional 4 weeks totaling 6 weeks postoperative DVT prophylaxis.), SCDs (bilateral SCDs), MIRNA Hose (bilateral thigh-high MIRNA hose) Resuscitation Status: CPR: Attempt Resuscitation Edison Escobar PA-C May 05, 2016 06:59
[2016-05-05 07:53] VITALS: PULSE 82
[2016-05-05] MEDS: Calcium Carbonate (Oyster Shell) 500 mg Tablet PO SCH (08:00)
[2016-05-05] MEDS: Insulin LISPRO 300 Unit/3 mL Inj SUBQ SCH ×4 (08:00→21:41)
--- NOTE | 2016-05-05 08:20 | DRSVH ---
PROCEDURE: X-RAY PELVIS W/LAT HIP (RT) ([id number]) INDICATIONS: postop TECHNIQUE: AP pelvis with lateral view(s) of the right hip(s). COMPARISON: [facility], , XR PELVIS W LATERAL HIP RT, 05/02/2016, 11:48. FINDINGS: Bones: Improved alignment status post ORIF of right subcapital femoral neck fracture and 2 partially cannulated surgical fixation screws present in expected position. Surgical lucille. Soft tissues: The visualized bowel gas pattern is normal. No suspicious soft tissue calcifications. IMPRESSION: Improved bony alignment status post ORIF of right subcapital femoral neck fracture. Dictated by: Lauro TURNER Interpreted: Stefany Myers MD on 05/05/2016 at 8:19 Transcribed by: SRIDHAR on 05/05/2016 at 8:20 Approved by: Stefany Myers M.D. on 05/05/2016 at 11:56
[2016-05-05] MEDS: Diltiazem CD 180 mg ER24 Capsule PO SCH ×2 (08:26→21:41)
[2016-05-05] MEDS: Pantoprazole 20 mg ER24 Tablet PO SCH (08:27)
[2016-05-05 08:33] VITALS: BP 112/56; PULSE 78; RESP 16; O2SAT 92
--- NOTE | 2016-05-05 09:15 | NUR ---
DAISY: Verbal Consent
--- NOTE | 2016-05-05 14:33 | PCM.PNMED ---
Subjective Date of Service May 05, 2016 Subjective no complaints Exam Vital Signs Vital Sign - Last Date Time Temp Pulse Resp B/P Pulse Ox O2 Delivery O2 Flow Rate FiO2 05/05/16 08:33 36.7 78 16 112/56 92 Nasal Cannula 3.00 Intake and Output 05/04/16 05/04/16 05/05/16 Cumulative From/Thru 15:00 23:00 07:00 05/02/16 10:47 - 05/05/16 06:09 Intake Total 1125 ml 50 ml 50 ml 3416 ml Output Total 1470 ml 300 ml 3920 ml Balance 1125 ml -1420 ml -250 ml -504 ml Intake Oral 0 ml 50 ml 1790 ml IV Total 1125 ml 50 ml 1626 ml Output Urine Total 1450 ml 300 ml 3900 ml Estimated Blood Loss 20 ml 20 ml # Bowel Movements 0 Exam Gen: alert and oriented, NAD heart: reg lungs: clear ant/lat abd: soft, NT Legs: no pedal edema IVs and Medications Medications Reviewed: Medications were reviewed in detail Lab and Diagnostics Result Diagram: 05/05/16 0620 05/05/16 0620 X-Rays, CTs and MRIs PROCEDURE: X-RAY PELVIS W/LAT HIP (RT) ([id number]) INDICATIONS: fall, right hip pain TECHNIQUE: AP pelvis with lateral view(s) of the right hip(s). COMPARISON: [facility], CT, PELVIS W/O CONTRAST, 03/21/2013, 16: 15. [facility], CR, PELVIS 1 OR 2VW, 01/19/2013, 19:38. [facility], CR, XR CHEST 1VW (PORTABLE), 05/02/2016, 11:48. FINDINGS: Bones: There is a poorly seen, impacted fracture of the subcapital right femoral neck. This represents a change compared to the 2012 plain film study. There is no right hip dislocation. No definite additional focal bone abnormality can be seen. Degenerative changes are seen throughout, particularly involving the lower lumbar spine. No suspicious lytic or blastic lesions are seen. Soft tissues: The visualized bowel gas pattern is normal. No suspicious soft tissue calcifications. Postoperative changes are seen, with numerous clips, including omentectomy clips. Atherosclerotic calcification is noted. IMPRESSION: There is an impacted, subcapital right femoral neck fracture seen. Dictated by: Suresh Stewart M.D. on 05/02/2016 at 11:13 Approved by: Suresh Stewart M.D. on 05/02/2016 at 11:16 PROCEDURE: X-RAY CHEST ONE VIEW, PORTABLE ([id number]) INDICATIONS: fall, right hip pain TECHNIQUE: One view of the chest was acquired. COMPARISON: [facility], CR, XR PELVIS W LATERAL HIP RT, 05/02/2016, 11:48. [facility], CR, CHEST 2VW, 09/11/2014, 8:43. FINDINGS: Surgical changes and devices: A 3-lead pacer device is seen. Upper abdominal postoperative clips are seen involving the left upper quadrant. Lungs and pleura: On this supine examination, no large pneumothorax or large pleural effusions are seen. No focal areas of lung consolidation are seen. Low lung volumes are noted. This causes a crowded appearance to the lung markings and limits evaluation. Mediastinum: Mediastinal contours appear normal. Heart size is normal. Bones and chest wall: No suspicious bony lesions. No definite, displaced rib fractures are seen. Age-appropriate bony degenerative changes are seen. Overlying soft tissues appear unremarkable. IMPRESSION: Supine portable chest demonstrating no definite, acute cardiopulmonary process. Postoperative and senescent changes are seen. Dictated by: Suresh Stewart M.D. on 05/02/2016 at 11:16 Approved by: Suresh Stewart M.D. on 05/02/2016 at 11:19 PROCEDURE: X-RAY FINGERS, TWO VIEWS INDICATIONS: thumb pain post fall TECHNIQUE: AP hand, 2 views of the right thumb acquired. COMPARISON: None. FINDINGS: Bones: There is a transverse linear sclerosis with proximal radiolucency in the midshaft of the distal phalanx of the thumb, suggestive of compaction injury with incomplete fracture. Degenerative joint disease is evident at the IP joint , the metacarpal phalangeal joint and the basilar joint of the thumb. There is also degeneration in the scaphomultangular joint of the wrist as well as the DIP joints of the fingers, PIP joint of the fifth ray and the second metacarpal phalangeal joint. Soft tissues: No suspicious soft tissue calcifications. IMPRESSION: 1. Probable impaction injury mid shaft distal phalanx of the thumb for cortical correlation. 2. 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 Dictated by: Davis Estrada M.D. on 05/02/2016 at 13:18 Approved by: Davis Estrada M.D. on 05/02/2016 at 13:22 Cardiac Echo Impressions Echocardiogram Report Name: MARIALUISA DEVI MStudy Date : 06/10/2015 Height: 62 in Hospital Exam Location: [facility] Weight: 158 lb Gender: Female BSA: 1.7 m2 : 1930 Age: 84 yrs BP: 151/80 m mHg Reason For Study: A-FIB. History: PACEMAKER Ordering Physician: Azeb Gallego Performed By: Janis Chowdhury Referring Physician: Dr. Julian Snell Interpretation Summary Left ventricular systolic function is low normal with the ejection fraction estimated to be 55-60% with a moderate dyssynchronous contraction pattern due to the paced rhythm. There are no other obvious focal wall motion abnormalities and this is unchanged compared to the previous study. The E/E' ratio is mildly increased, suggesting possible increased filling pressures. The right ventricle is normal in size and function, and appears unchanged compared to the previous study. The right ventricular systolic pressure is estimated at 36 mmHg assuming a right atrial pressure of 3 mm Hg and is slightly higher compared to the previous study. The left atrium is severely dilated and the right atrium is moderately dilated. Both atria have mildly increased in size since the prior echo exam. There is moderate mitral regurgitation, moderate tricuspid regurgitation, and moderate pulmonic regurgitation. All are more prominent compared to the previous study. The aortic valve is mildly calcified with mild aortic stenosis that is slightly progressive compared to the previous study. There is mild aortic regurgitation that is unchanged compared to the previous study. Assessment & Plan The patient is an 85 year old female with history of endometrial carcinoma with metastatic disease s/p debulking and chemotherapy, congestive heart failure, iron deficiency anemia, atrial fibrillation, tachybradycardia syndrome s/p pacemaker/AICD implant, hypertension, and subdural hematoma in 2012, who was brought to the emergency department by EMS after she had a ground level fall prior to arrival. The patient was at the cardiology office trying to make an appointment when she turned around and fell to the ground. Per staff the patient did not hit her head or lose consciousness. She landed on her right side injuring her right hip and right thumb. Medics administered 50 IM ketamine patient was brought to [facility] emergency room where she was evaluated by Dr. Tai Hope who performed an x-ray of the right hip which showed an impacted, subcapital right femoral neck fracture. Dr. Matthew Orr was consulted orthopedic surgery. Dr. Gallego cardiology was consulted and saw the patient in the emergency room. Patient was admitted to the hospitalist service. Ground-level fall resulting in an impacted, subcapital right femoral neck fracture along with a right thumb nondisplaced, impaction distal phalanx shaft fracture -Status post in situ right hip cannulated pinning May 04 using 3 partially- threaded Synthes 7.3 mm cannulated screws. The threaded portion of the screws were advanced into the femoral head subchondral bone, medial to the femoral neck fracture site. -Pain control per surgery -Eliquis anticoagulation is currently held, begin Eliquis when okay with surgery Chronic AFib diagnosed in 2011. -Continue rate control with Cardizem and metoprolol -Hold Eliquis for surgery Coronary artery disease, status post catheterization in January 2013, with 80% mid LAD, 50% OM, 50% RCA. These lesions were treated medically because of her advanced age. She had fractional flow reserve of the LAD lesion, which was 0.88 , and at that time it was interpreted as being not hemodynamically significant. Hypertension -Continue home medications with metoprolol and diltiazem. Hyperlipidemia. -Continue atorvastatin Diabetes. -Continue metformin -Check glucose before meals and at bedtime with sliding scale insulin coverage Obstructive sleep apnea. Not currently using CPAP. Idiopathic cardiomyopathy. She has global hypokinesis. EF was 20% as of January 2013, and was up to 55% as of August 23, 2013. Her most recent echocardiogram was performed in June 2015, and showed ejection fraction of55%. There was moderate dyssynchrony to the paced rhythm. She had severe left atrial enlargement, moderate right atrial enlargement, moderate mitral regurgitation, moderate tricuspid regurgitation, moderate pulmonic regurgitation. She has mild aortic stenosis and mild aortic regurgitation, unchanged from prior study. Pacemaker upgrade from single lead to a BiV device ([employer] [place]) inJanuary 2013. Hx Syncope resulting in subdural hematoma. Medically treated (January2013). -Patient has a pacemaker/AICD since that time Metastatic endometrial adenocarcinoma. Also, fallopian tube carcinoma, status post debulking procedure followed by intraperitoneal chemotherapy lavage at [facility] and paclitaxel chemotherapy in 2005. Gastroesophageal Reflux -Continue proton pump inhibitor . Chronic iron deficiency anemia. -Continue ferrous sulfate as at home Disposition: Depending on postoperative course. Dr. Doty following a.m. . GI Prophylaxis: Proton Pump Inhibitor VTE Prophylaxis: Sub-Q Enoxaparin (Lovenox 40 mg subcutaneous daily 2 weeks postop with transition to ASA 325 mg EC by mouth twice a day for additional 4 weeks totaling 6 weeks postoperative DVT prophylaxis.), SCDs (bilateral SCDs), MIRNA Hose (bilateral thigh-high MIRNA hose) VTE Mechanical Devices: Intermittant Pneumatic CD Resuscitation Status: CPR: Attempt Resuscitation Kristina Doty MD May 05, 2016 14:33
[2016-05-05 15:59] VITALS: BP 112/68; PULSE 72; RESP 16; O2SAT 95
--- NOTE | 2016-05-05 18:19 | NUR ---
POD1 Hydrocodone 1-2 tabs PO has been effective for pain control. Tolerating liquids PO and her diet well. Denies nausea. No emesis noted. Denies SOB. Patient was able to get OOB with PT and tolerated it well. Reinstructed RE: Weightbearing precautions. Instructed RE: IS use. Dressing is CDI. C d/cd at 1700. No UO at this time. SCD's and [place] hose are on. She has been using her call light appropriately and has not attempted to get OOB on her own. Turn Q 2 hrs was not consistently done due to patients refusal to be turned at times. Care continues.
[2016-05-05 20:01] VITALS: BP 120/72; PULSE 70; RESP 18; O2SAT 94
[2016-05-06] VITALS (9 sets, daily range): BP systolic 121–156; BP diastolic 72–87; PULSE 70–113; RESP 16–20; O2SAT 93–99
[2016-05-06 06:52] LABS: BASOPHILS % (AUTO) 0.3 % (0-3); EOSINOPHILS % (AUTO) 3.8 % (0-5); MONOCYTES % (AUTO) 6.4 % (4-12); Mean Corpuscular Volume 93.1 fL (81-100); NEUTROPHILS % (AUTO) 71.6 % (40-74); Platelet Count 174 bil/L (150-400)
--- NOTE | 2016-05-06 06:54 | NUR ---
Activity Pt C/O Right hip pain when turns. She used bedpan x 1. Pain subsided with meds and comfort. No overt complications noted.
[2016-05-06 07:21] LABS: Magnesium 1.8 mg/dL (1.6-2.6)
[2016-05-06] MEDS: Pantoprazole 20 mg ER24 Tablet PO SCH (08:00)
[2016-05-06] MEDS: Insulin LISPRO 300 Unit/3 mL Inj SUBQ SCH ×4 (08:00→22:00)
[2016-05-06] MEDS: Calcium Carbonate (Oyster Shell) 500 mg Tablet PO SCH (08:01)
[2016-05-06] MEDS: Diltiazem CD 180 mg ER24 Capsule PO SCH ×2 (08:44→20:35)
[2016-05-06] MEDS: HYDROcodone-APAP 5-325 mg Tablet PO PRN ×2 (11:03→20:31)
--- NOTE | 2016-05-06 11:39 | PCM.PNMED ---
Subjective Date of Service May 06, 2016 Subjective No complaints, happy she was able to use the bedpan today, hasn't been OOB but says sat at the edge of the bed Exam Vital Signs Vital Sign - Last Date Time Temp Pulse Resp B/P Pulse Ox O2 Delivery O2 Flow Rate FiO2 05/06/16 10:03 80 05/06/16 08:30 Supplement Oxygen 05/06/16 07:58 149/81 05/06/16 04:20 37.1 20 98 3.00 Intake and Output 05/05/16 05/05/16 05/06/16 Cumulative From/Thru 15:00 23:00 07:00 05/02/16 10:47 - 05/06/16 06:53 Intake Total 645 ml 1322 ml 300 ml 5683 ml Output Total 600 ml 4520 ml Balance 645 ml 722 ml 300 ml 1163 ml Intake Oral 600 ml 300 ml 2690 ml IV Total 645 ml 722 ml 2993 ml Output Urine Total 600 ml 4500 ml Estimated Blood Loss 20 ml # Voids 1 1 # Bowel Movements 0 0 0 Exam Alert and oriented Heart: irreg irreg Lungs: clear ant/lat Abd: soft, NT Lower extrem: hint of pedal edema IVs and Medications Medications Reviewed: Medications were reviewed in detail Lab and Diagnostics Result Diagram: 05/06/16 0620 05/06/16 0620 X-Rays, CTs and MRIs PROCEDURE: X-RAY PELVIS W/LAT HIP (RT) ([id number]) INDICATIONS: fall, right hip pain TECHNIQUE: AP pelvis with lateral view(s) of the right hip(s). COMPARISON: [facility], CT, PELVIS W/O CONTRAST, 03/21/2013, 16: 15. [facility], CR, PELVIS 1 OR 2VW, 01/19/2013, 19:38. [facility], CR, XR CHEST 1VW (PORTABLE), 05/02/2016, 11:48. FINDINGS: Bones: There is a poorly seen, impacted fracture of the subcapital right femoral neck. This represents a change compared to the 2012 plain film study. There is no right hip dislocation. No definite additional focal bone abnormality can be seen. Degenerative changes are seen throughout, particularly involving the lower lumbar spine. No suspicious lytic or blastic lesions are seen. Soft tissues: The visualized bowel gas pattern is normal. No suspicious soft tissue calcifications. Postoperative changes are seen, with numerous clips, including omentectomy clips. Atherosclerotic calcification is noted. IMPRESSION: There is an impacted, subcapital right femoral neck fracture seen. Dictated by: Suresh Stewart M.D. on 05/02/2016 at 11:13 Approved by: Suresh Stewart M.D. on 05/02/2016 at 11:16 PROCEDURE: X-RAY CHEST ONE VIEW, PORTABLE ([id number]) INDICATIONS: fall, right hip pain TECHNIQUE: One view of the chest was acquired. COMPARISON: [facility], CR, XR PELVIS W LATERAL HIP RT, 05/02/2016, 11:48. [facility], CR, CHEST 2VW, 09/11/2014, 8:43. FINDINGS: Surgical changes and devices: A 3-lead pacer device is seen. Upper abdominal postoperative clips are seen involving the left upper quadrant. Lungs and pleura: On this supine examination, no large pneumothorax or large pleural effusions are seen. No focal areas of lung consolidation are seen. Low lung volumes are noted. This causes a crowded appearance to the lung markings and limits evaluation. Mediastinum: Mediastinal contours appear normal. Heart size is normal. Bones and chest wall: No suspicious bony lesions. No definite, displaced rib fractures are seen. Age-appropriate bony degenerative changes are seen. Overlying soft tissues appear unremarkable. IMPRESSION: Supine portable chest demonstrating no definite, acute cardiopulmonary process. Postoperative and senescent changes are seen. Dictated by: Suresh Stewart M.D. on 05/02/2016 at 11:16 Approved by: Suresh Stewart M.D. on 05/02/2016 at 11:19 PROCEDURE: X-RAY FINGERS, TWO VIEWS INDICATIONS: thumb pain post fall TECHNIQUE: AP hand, 2 views of the right thumb acquired. COMPARISON: None. FINDINGS: Bones: There is a transverse linear sclerosis with proximal radiolucency in the midshaft of the distal phalanx of the thumb, suggestive of compaction injury with incomplete fracture. Degenerative joint disease is evident at the IP joint , the metacarpal phalangeal joint and the basilar joint of the thumb. There is also degeneration in the scaphomultangular joint of the wrist as well as the DIP joints of the fingers, PIP joint of the fifth ray and the second metacarpal phalangeal joint. Soft tissues: No suspicious soft tissue calcifications. IMPRESSION: 1. Probable impaction injury mid shaft distal phalanx of the thumb for cortical correlation. 2. 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 Dictated by: Davis Estrada M.D. on 05/02/2016 at 13:18 Approved by: Davis Estrada M.D. on 05/02/2016 at 13:22 Cardiac Echo Impressions Echocardiogram Report Name: MARIALUISA DEVI MStudy Date : 06/10/2015 Height: 62 in Hospital Exam Location: [facility] Weight: 158 lb Gender: Female BSA: 1.7 m2 : 1930 Age: 84 yrs BP: 151/80 m mHg Reason For Study: A-FIB. History: PACEMAKER Ordering Physician: Azeb Gallego Performed By: Janis Chowdhury Referring Physician: Dr. Julian Snell Interpretation Summary Left ventricular systolic function is low normal with the ejection fraction estimated to be 55-60% with a moderate dyssynchronous contraction pattern due to the paced rhythm. There are no other obvious focal wall motion abnormalities and this is unchanged compared to the previous study. The E/E' ratio is mildly increased, suggesting possible increased filling pressures. The right ventricle is normal in size and function, and appears unchanged compared to the previous study. The right ventricular systolic pressure is estimated at 36 mmHg assuming a right atrial pressure of 3 mm Hg and is slightly higher compared to the previous study. The left atrium is severely dilated and the right atrium is moderately dilated. Both atria have mildly increased in size since the prior echo exam. There is moderate mitral regurgitation, moderate tricuspid regurgitation, and moderate pulmonic regurgitation. All are more prominent compared to the previous study. The aortic valve is mildly calcified with mild aortic stenosis that is slightly progressive compared to the previous study. There is mild aortic regurgitation that is unchanged compared to the previous study. Assessment & Plan The patient is an 85 year old female with history of endometrial carcinoma with metastatic disease s/p debulking and chemotherapy, congestive heart failure, iron deficiency anemia, atrial fibrillation, tachybradycardia syndrome s/p pacemaker/AICD implant, hypertension, and subdural hematoma in 2012, who was brought to the emergency department by EMS after she had a ground level fall prior to arrival. The patient was at the cardiology office trying to make an appointment when she turned around and fell to the ground. Per staff the patient did not hit her head or lose consciousness. She landed on her right side injuring her right hip and right thumb. Medics administered 50 IM ketamine patient was brought to [facility] emergency room where she was evaluated by Dr. Tai Hope who performed an x-ray of the right hip which showed an impacted, subcapital right femoral neck fracture. Dr. Matthew Orr was consulted orthopedic surgery. Dr. Gallego cardiology was consulted and saw the patient in the emergency room. Patient was admitted to the hospitalist service. Ground-level fall resulting in an impacted, subcapital right femoral neck fracture along with a right thumb nondisplaced, impaction distal phalanx shaft fracture -Status post in situ right hip cannulated pinning May 2 using 3 partially- threaded Synthes 7.3 mm cannulated screws. The threaded portion of the screws were advanced into the femoral head subchondral bone, medial to the femoral neck fracture site. -Pain control per surgery -Eliquis anticoagulation is currently held, begin Eliquis when okay with surgery Chronic AFib diagnosed in 2011. -Continue rate control with Cardizem and metoprolol -Hold Eliquis for surgery Coronary artery disease, status post catheterization in January 2013, with 80% mid LAD, 50% OM, 50% RCA. These lesions were treated medically because of her advanced age. She had fractional flow reserve of the LAD lesion, which was 0.88 , and at that time it was interpreted as being not hemodynamically significant. Hypertension -Continue home medications with metoprolol and diltiazem. Hyperlipidemia. -Continue atorvastatin Diabetes. -Continue metformin -Check glucose before meals and at bedtime with sliding scale insulin coverage Obstructive sleep apnea. Not currently using CPAP. Idiopathic cardiomyopathy. She has global hypokinesis. EF was 20% as of January 2013, and was up to 55% as of August 23, 2013. Her most recent echocardiogram was performed in June 2015, and showed ejection fraction of55%. There was moderate dyssynchrony to the paced rhythm. She had severe left atrial enlargement, moderate right atrial enlargement, moderate mitral regurgitation, moderate tricuspid regurgitation, moderate pulmonic regurgitation. She has mild aortic stenosis and mild aortic regurgitation, unchanged from prior study. Pacemaker upgrade from single lead to a BiV device ([employer] [place]) inJanuary 2013. Hx Syncope resulting in subdural hematoma. Medically treated (January2013). -Patient has a pacemaker/AICD since that time Metastatic endometrial adenocarcinoma. Also, fallopian tube carcinoma, status post debulking procedure followed by intraperitoneal chemotherapy lavage at [facility] and paclitaxel chemotherapy in 2005. Gastroesophageal Reflux -Continue proton pump inhibitor . Chronic iron deficiency anemia. -Continue ferrous sulfate as at home Disposition: Planned DC to SNF tomorrow . GI Prophylaxis: Proton Pump Inhibitor VTE Prophylaxis: Sub-Q Enoxaparin (Lovenox 40 mg subcutaneous daily 2 weeks postop with transition to ASA 325 mg EC by mouth twice a day for additional 4 weeks totaling 6 weeks postoperative DVT prophylaxis.), SCDs (bilateral SCDs), MIRNA Hose (bilateral thigh-high MIRNA hose) VTE Mechanical Devices: Intermittant Pneumatic CD Resuscitation Status: CPR: Attempt Resuscitation Kristina Doty MD May 06, 2016 11:39
--- NOTE | 2016-05-06 12:35 | PCM.PNORTH ---
Subjective Date of Service: May 06, 2016 Visit Information: Reason for Visit Rt Hip Fx, Chf Exacerbation Surgery/Surgery Date R HIP PINNING 05/04/16 Post-Op Day # Date of Admission: May 02, 2016 at 17:59 Hospital Day # Subjective Patient states she just finished physical therapy and is having very little pain. She states she thinks she did very well. Patient has no questions or concerns at this time. Postop General: No Complaints, No Shortness of Breath, No Chest Pain Pain Management: PO Objective Exam Objective Patient laying in bed. Vital Signs and I/O Vital Sign - Last Date Time Temp Pulse Resp B/P Pulse Ox O2 Delivery O2 Flow Rate FiO2 05/06/16 10:03 80 05/06/16 08:30 Supplement Oxygen 05/06/16 07:58 149/81 05/06/16 04:20 37.1 20 98 3.00 Intake and Output 05/05/16 05/05/16 05/06/16 Cumulative From/Thru 15:00 23:00 07:00 05/02/16 10:47 - 05/06/16 06:53 Intake Total 645 ml 1322 ml 300 ml 5683 ml Output Total 600 ml 4520 ml Balance 645 ml 722 ml 300 ml 1163 ml Intake Oral 600 ml 300 ml 2690 ml IV Total 645 ml 722 ml 2993 ml Output Urine Total 600 ml 4500 ml Estimated Blood Loss 20 ml # Voids 1 1 # Bowel Movements 0 0 0 Lab & Micro Results Laboratory Tests Test 05/06/16 06:20 White Blood Count 7.6th/mm3 (3.8-10.1) Red Blood Count 3.61mil/mm3 (3.90-5.20) Hemoglobin 11.2g/dL (12.0-15.6) Hematocrit 33.6% (35.0-46.0) Mean Corpuscular Volume 93.1fL (81-100) Mean Corpuscular Hemoglobin 31.0pg (27.0-35.0) Mean Corpuscular Hemoglobin Concent 33.3% (32.0-37.0) Red Cell Distribution Width 12.9% (12.3-15.4) Platelet Count 174bil/L (150-400) Neutrophils (%) (Auto) 71.6% (40-74) Lymphocytes (%) (Auto) 17.1% (14-46) Monocytes (%) (Auto) 6.4% (4-12) Eosinophils (%) (Auto) 3.8% (0-5) Basophils (%) (Auto) 0.3% (0-3) Sodium Level 138mEq/L (134-144) Potassium Level 4.6mEq/L (3.5-5.2) Chloride Level 99mEq/L (97-108) Carbon Dioxide Level 24mmol/L (18-29) Blood Urea Nitrogen 28mg/dL (8-27) Creatinine 1.28mg/dL (0.57-1.00) Estimat Glomerular Filtration Rate 57mL/min (>59) Glucose Level 95mg/dL (60-99) Calcium Level 8.9mg/dL (8.5-10.1) Magnesium Level 1.8mg/dL (1.6-2.6) Total Bilirubin 0.4mg/dL (0.0-1.2) Aspartate Amino Transf (AST/SGOT) 19U/L (0-50) Alanine Aminotransferase (ALT/SGPT) 5U/L (0-32) Alkaline Phosphatase 77U/L (25-165) Total Protein 6.1g/dL (6.4-8.4) Albumin 3.0g/dL (3.4-5.0) Result Diagram: 05/06/1661905/06/16619 General Appearance: Alert, Oriented X3, Cooperative, No Acute Distress Extremities: Distal Pulses Palpable, Warm, No Compartment Syndrom Noted, Cyanotic Postop Sensory Motor: Distal Motor Intact, Movement in Toes, Distal Sensation Intact, NVI Distally SURGICAL WOUND : Wound Location/Description Dressings clean, dry and intact Incision General Appearance: No Direct Observation Activity: Activity per PT, Ambulate with PT (touchdown weightbearing on the right lower extremity with front wheeled walker 6 weeks postop.) Assessment & Plan Impression Postop day 2 right hip pinning Problems: Plan Weightbearing: Touchdown weightbearing with the right lower extremity 6 weeks DVT prophylaxis: Without 40 mg subcutaneous 2 weeks then aspirin enteric- coated 325 mg twice a day 4 weeks Physical therapy for fracture rehabilitation and occupational therapy Wound care: Dressings to remain intact until seen in follow-up. Analgesia: Encourage oral pain management Discharge plan: Discharge likely to SNF in 1-2 days. Follow-up plan: In on POD #12 at [facility] with LALITHA for wound check and staple removal and at [address] Orr with x-rays of the hip and left thumb. VTE Prophylaxis: Sub-Q Enoxaparin (Lovenox 40 mg subcutaneous daily 2 weeks postop with transition to ASA 325 mg EC by mouth twice a day for additional 4 weeks totaling 6 weeks postoperative DVT prophylaxis.), SCDs (bilateral SCDs), MIRNA Hose (bilateral thigh-high MIRNA hose) Resuscitation Status: CPR: Attempt Resuscitation Georgiana Lu PA-C May 06, 2016 12:24
--- NOTE | 2016-05-06 17:21 | NUR ---
Activity: Pt denies any pain at rest, premedicated for PT, up to BSC x2. Pt has some urinary retention when using bedpan, encouraged pt to get up for all toileting. Care ongoing.
--- NOTE | 2016-05-07 00:02 | NUR ---
Hallucinations Patient stated she has been having visual hallucinations which she says she doesn't have a history of. She states they have been on and off throughout the day. Patient has been receiving Vicodin for pain. May try Tylenol instead of Vicodin for pain when patient is in need of pain medication next, to see if hallucinations go away.
[2016-05-07 04:58] VITALS: BP 136/85; PULSE 82; RESP 16; O2SAT 98
[2016-05-07 06:10] VITALS: PULSE 82
[2016-05-07 06:18] LABS: BASOPHILS % (AUTO) 0.1 % (0-3); EOSINOPHILS % (AUTO) 1.6 % (0-5); MONOCYTES % (AUTO) 7.3 % (4-12); Mean Corpuscular Hemoglobin 31.2 pg (27.0-35.0); Mean Corpuscular Volume 94.6 fL (81-100); NEUTROPHILS % (AUTO) 67.7 % (40-74); Platelet Count 177 bil/L (150-400)
[2016-05-07 06:32] LABS: Magnesium 1.7 mg/dL (1.6-2.6)
[2016-05-07] MEDS: Insulin LISPRO 300 Unit/3 mL Inj SUBQ SCH ×2 (08:00→12:00)
[2016-05-07] MEDS: Diltiazem CD 180 mg ER24 Capsule PO SCH (09:11)
[2016-05-07] MEDS: Calcium Carbonate (Oyster Shell) 500 mg Tablet PO SCH (09:11)
[2016-05-07] MEDS: Pantoprazole 20 mg ER24 Tablet PO SCH (09:12)
--- NOTE | 2016-05-07 09:26 | NUR ---
DAISY signed Laura Florez
[2016-05-07 09:56] VITALS: BP 153/91; PULSE 65; RESP 16; O2SAT 93
[2016-05-07 10:06] VITALS: PULSE 63
--- NOTE | 2016-05-07 12:03 | PCM.PNORTH ---
Subjective Date of Service: May 07, 2016 Visit Information: Reason for Visit Rt Hip Fx, Chf Exacerbation Surgery/Surgery Date R HIP PINNING 05/04/16 Post-Op Day # 3 Date of Admission: May 02, 2016 at 17:59 Hospital Day # Subjective Patient states she is feeling well today. Patient is wondering when she will be discharged. Denies any new symptoms, pain is well controlled. Postop General: No Complaints, No Shortness of Breath, No Chest Pain Pain Management: PO Objective Exam Objective Patient laying in bed Vital Signs and I/O Vital Sign - Last Date Time Temp Pulse Resp B/P Pulse Ox O2 Delivery O2 Flow Rate FiO2 05/07/16 10:06 63 05/07/16 09:56 36.9 16 153/91 93 Nasal Cannula 3.00 Intake and Output 05/06/16 05/06/16 05/07/16 Cumulative From/Thru 15:00 23:00 07:00 05/02/16 10:47 - 05/07/16 04:58 Intake Total 1000 ml 200 ml 6883 ml Output Total 1225 ml 650 ml 6395 ml Balance -225 ml -450 ml 488 ml Intake Oral 1000 ml 200 ml 3890 ml IV Total 2993 ml Output Urine Total 1225 ml 650 ml 6375 ml Estimated Blood Loss 20 ml # Voids 1 # Bowel Movements 0 Lab & Micro Results Laboratory Tests Test 05/07/16 05:50 White Blood Count 7.0th/mm3 (3.8-10.1) Red Blood Count 3.72mil/mm3 (3.90-5.20) Hemoglobin 11.6g/dL (12.0-15.6) Hematocrit 35.2% (35.0-46.0) Mean Corpuscular Volume 94.6fL (81-100) Mean Corpuscular Hemoglobin 31.2pg (27.0-35.0) Mean Corpuscular Hemoglobin Concent 33.0% (32.0-37.0) Red Cell Distribution Width 12.6% (12.3-15.4) Platelet Count 177bil/L (150-400) Neutrophils (%) (Auto) 67.7% (40-74) Lymphocytes (%) (Auto) 23.0% (14-46) Monocytes (%) (Auto) 7.3% (4-12) Eosinophils (%) (Auto) 1.6% (0-5) Basophils (%) (Auto) 0.1% (0-3) Sodium Level 142mEq/L (134-144) Potassium Level 4.3mEq/L (3.5-5.2) Chloride Level 99mEq/L (97-108) Carbon Dioxide Level 32mmol/L (18-29) Blood Urea Nitrogen 25mg/dL (8-27) Creatinine 1.26mg/dL (0.57-1.00) Estimat Glomerular Filtration Rate 58mL/min (>59) Glucose Level 147mg/dL (60-99) Calcium Level 9.2mg/dL (8.5-10.1) Magnesium Level 1.7mg/dL (1.6-2.6) Total Bilirubin 0.5mg/dL (0.0-1.2) Aspartate Amino Transf (AST/SGOT) 14U/L (0-50) Alanine Aminotransferase (ALT/SGPT) 5U/L (0-32) Alkaline Phosphatase 78U/L (25-165) Total Protein 6.1g/dL (6.4-8.4) Albumin 3.3g/dL (3.4-5.0) Result Diagram: 2//17 0550 2/17 0550 General Appearance: Alert, Oriented X3, Cooperative, No Acute Distress Extremities: Distal Pulses Palpable, No Compartment Syndrom Noted Postop Sensory Motor: Distal Motor Intact, Movement in Toes, Distal Sensation Intact, NVI Distally SURGICAL WOUND : Wound Location/Description Dressings clean, dry and intact Incision General Appearance: No Direct Observation Dressing & Drainage Status: Intact Activity: Activity per PT, Ambulate with PT (touchdown weightbearing on the right lower extremity with front wheeled walker 6 weeks postop.) Assessment & Plan Impression POD#3 right hip pinning Problems: Plan Weightbearing: Touchdown weightbearing with the right lower extremity 6 weeks DVT prophylaxis: Patient is currently on Lovenox, however patient could switch back to home dosage of Eliquis when she leaves the hospital. Physical therapy for fracture rehabilitation and occupational therapy Wound care: Dressings to remain intact until seen in follow-up. Analgesia: Encourage oral pain management Discharge plan: Discharge likely to SNF today or tomorrow. Follow-up plan: In on POD #12 at [facility] with PA for wound check and staple removal and at [address] Orr with x-rays of the hip and left thumb. Patient is stable from an orthopedic standpoint. Appreciate medical management by hospitalist service. Ortho will sign off, please feel free to call with questions or concerns. VTE Prophylaxis: Sub-Q Enoxaparin (Lovenox 40 mg subcutaneous daily 2 weeks postop with transition to ASA 325 mg EC by mouth twice a day for additional 4 weeks totaling 6 weeks postoperative DVT prophylaxis.), SCDs (bilateral SCDs), MIRNA Hose (bilateral thigh-high MIRNA hose) Resuscitation Status: CPR: Attempt Resuscitation Georgiana Lu PA-C May 07, 2016 12:03
--- NOTE | 2016-05-07 12:33 | PCM.DIMED ---
Discharge Instructions Date of Service May 07, 2016 Dates of Hospitalization May 02, 2016 at 17:59 Diet Heart Healthy Activity Other (Weightbearing: Touchdown weightbearing with the right lower extremity 6 weeks) Patient Instructions Follow-up plan Follow-up plan: In on POD #12 at [facility] with PA for wound check and staple removal and at [address] Orr with x-rays of the hip and left thumb. Additional Information Physical Therapy as per ortho's instructions Kristina Doty MD May 07, 2016 12:33
[2016-05-07] MEDS ORDERED: HYDR-4003 PO ×2 (12:37→13:28)
[2016-05-07] MEDS ORDERED: INSLIS SUBQ (12:37)
--- NOTE | 2016-05-07 12:46 | PCM.DC.MED ---
Discharge Summary Date of Service May 07, 2016 Dates of Hospitalization Date of Hospital Admission May 02, 2016 at 17:59 Date of Discharge: May 07, 2016 Providers: Admitting Physician: David Ng MD Primary Care Physician: Sanjay Gray MD Attending Physician: David Ng MD Diagnosis at Time of Discharge Diagnosis at Time of Discharge Ground-level fall resulting in an impacted, subcapital right femoral neck fracture along with a right thumb nondisplaced, impaction distal phalanx shaft fracture Status post in situ right hip cannulated pinning May 04 using 3 partially- threaded Synthes 7.3 mm cannulated screws. The threaded portion of the screws were advanced into the femoral head subchondral bone, medial to the femoral neck fracture site. Chronic AFib diagnosed in 2011. Coronary artery disease Hypertension Idiopathic cardiomyopathy. Procedures XRay, CTs & MRIs PROCEDURE: X-RAY PELVIS W/LAT HIP (RT) ([id number]) INDICATIONS: fall, right hip pain TECHNIQUE: AP pelvis with lateral view(s) of the right hip(s). COMPARISON: [facility], CT, PELVIS W/O CONTRAST, 03/21/2013, 16: 15. [facility], CR, PELVIS 1 OR 2VW, 01/19/2013, 19:38. [facility], CR, XR CHEST 1VW (PORTABLE), 05/02/2016, 11:48. FINDINGS: Bones: There is a poorly seen, impacted fracture of the subcapital right femoral neck. This represents a change compared to the 2012 plain film study. There is no right hip dislocation. No definite additional focal bone abnormality can be seen. Degenerative changes are seen throughout, particularly involving the lower lumbar spine. No suspicious lytic or blastic lesions are seen. Soft tissues: The visualized bowel gas pattern is normal. No suspicious soft tissue calcifications. Postoperative changes are seen, with numerous clips, including omentectomy clips. Atherosclerotic calcification is noted. IMPRESSION: There is an impacted, subcapital right femoral neck fracture seen. Dictated by: Suresh Stewart M.D. on 05/02/2016 at 11:13 Approved by: Suresh Stewart M.D. on 05/02/2016 at 11:16 PROCEDURE: X-RAY CHEST ONE VIEW, PORTABLE ([id number]) INDICATIONS: fall, right hip pain TECHNIQUE: One view of the chest was acquired. COMPARISON: [facility], CR, XR PELVIS W LATERAL HIP RT, 05/02/2016, 11:48. [facility], CR, CHEST 2VW, 09/11/2014, 8:43. FINDINGS: Surgical changes and devices: A 3-lead pacer device is seen. Upper abdominal postoperative clips are seen involving the left upper quadrant. Lungs and pleura: On this supine examination, no large pneumothorax or large pleural effusions are seen. No focal areas of lung consolidation are seen. Low lung volumes are noted. This causes a crowded appearance to the lung markings and limits evaluation. Mediastinum: Mediastinal contours appear normal. Heart size is normal. Bones and chest wall: No suspicious bony lesions. No definite, displaced rib fractures are seen. Age-appropriate bony degenerative changes are seen. Overlying soft tissues appear unremarkable. IMPRESSION: Supine portable chest demonstrating no definite, acute cardiopulmonary process. Postoperative and senescent changes are seen. Dictated by: Suresh Stewart M.D. on 05/02/2016 at 11:16 Approved by: Suresh Stewart M.D. on 05/02/2016 at 11:19 PROCEDURE: X-RAY FINGERS, TWO VIEWS INDICATIONS: thumb pain post fall TECHNIQUE: AP hand, 2 views of the right thumb acquired. COMPARISON: None. FINDINGS: Bones: There is a transverse linear sclerosis with proximal radiolucency in the midshaft of the distal phalanx of the thumb, suggestive of compaction injury with incomplete fracture. Degenerative joint disease is evident at the IP joint , the metacarpal phalangeal joint and the basilar joint of the thumb. There is also degeneration in the scaphomultangular joint of the wrist as well as the DIP joints of the fingers, PIP joint of the fifth ray and the second metacarpal phalangeal joint. Soft tissues: No suspicious soft tissue calcifications. IMPRESSION: 1. Probable impaction injury mid shaft distal phalanx of the thumb for cortical correlation. 2. 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 Dictated by: Davis Estrada M.D. on 05/02/2016 at 13:18 Approved by: Davis Estrada M.D. on 05/02/2016 at 13:22 Cardiac Echo Impression Echocardiogram Report Name: MARIALUISA DEVI MStudy Date : 06/10/2015 Height: 62 in Hospital Exam Location: [facility] Weight: 158 lb Gender: Female BSA: 1.7 m2 : 1930 Age: 84 yrs BP: 151/80 m mHg Reason For Study: A-FIB. History: PACEMAKER Ordering Physician: Azeb Gallego Performed By: Janis Chowdhury Referring Physician: Dr. Julian Snell Interpretation Summary Left ventricular systolic function is low normal with the ejection fraction estimated to be 55-60% with a moderate dyssynchronous contraction pattern due to the paced rhythm. There are no other obvious focal wall motion abnormalities and this is unchanged compared to the previous study. The E/E' ratio is mildly increased, suggesting possible increased filling pressures. The right ventricle is normal in size and function, and appears unchanged compared to the previous study. The right ventricular systolic pressure is estimated at 36 mmHg assuming a right atrial pressure of 3 mm Hg and is slightly higher compared to the previous study. The left atrium is severely dilated and the right atrium is moderately dilated. Both atria have mildly increased in size since the prior echo exam. There is moderate mitral regurgitation, moderate tricuspid regurgitation, and moderate pulmonic regurgitation. All are more prominent compared to the previous study. The aortic valve is mildly calcified with mild aortic stenosis that is slightly progressive compared to the previous study. There is mild aortic regurgitation that is unchanged compared to the previous study. Brief History The patient is an 85 year old female with history of endometrial carcinoma with metastatic disease s/p debulking and chemotherapy, congestive heart failure, iron deficiency anemia, atrial fibrillation, tachybradycardia syndrome s/p pacemaker/AICD implant, hypertension, and subdural hematoma in 2012, who was brought to the emergency department by EMS after she had a ground level fall prior to arrival. The patient was at the cardiology office trying to make an appointment when she turned around and fell to the ground. Per staff the patient did not hit her head or lose consciousness. She landed on her right side injuring her right hip and right thumb. Medics administered 50 IM ketamine patient was brought to [facility] emergency room where she was evaluated by Dr. Tai Hope who performed an x-ray of the right hip which showed an impacted, subcapital right femoral neck fracture. Dr. Matthew rOr was consulted orthopedic surgery. Dr. Gallego cardiology was consulted and saw the patient in the emergency room. Patient was admitted to the hospitalist service. Hospital Course The patient is an 85 year old female with history of endometrial carcinoma with metastatic disease s/p debulking and chemotherapy, congestive heart failure, iron deficiency anemia, atrial fibrillation, tachybradycardia syndrome s/p pacemaker/AICD implant, hypertension, and subdural hematoma in 2012, who was brought to the emergency department by EMS after she had a ground level fall prior to arrival. The patient was at the cardiology office trying to make an appointment when she turned around and fell to the ground. Per staff the patient did not hit her head or lose consciousness. She landed on her right side injuring her right hip and right thumb. Medics administered 50 IM ketamine patient was brought to [facility] emergency room where she was evaluated by Dr. Tai Hope who performed an x-ray of the right hip which showed an impacted, subcapital right femoral neck fracture. Dr. Matthew Orr was consulted orthopedic surgery. Dr. Gallego cardiology was consulted and saw the patient in the emergency room. Patient was admitted to the hospitalist service. Ground-level fall resulting in an impacted, subcapital right femoral neck fracture along with a right thumb nondisplaced, impaction distal phalanx shaft fracture -Status post in situ right hip cannulated pinning May 04 using 3 partially- threaded Synthes 7.3 mm cannulated screws. The threaded portion of the screws were advanced into the femoral head subchondral bone, medial to the femoral neck fracture site. -Pain control per surgery -Eliquis anticoagulation is currently held, to be restarted at discharge Chronic AFib diagnosed in 2011. -Continued rate control with Cardizem and metoprolol -Held Eliquis for surgery Coronary artery disease, status post catheterization in January 2013, with 80% mid LAD, 50% OM, 50% RCA. These lesions were treated medically because of her advanced age. She had fractional flow reserve of the LAD lesion, which was 0.88 , and at that time it was interpreted as being not hemodynamically significant. Hypertension -Continued home medications with metoprolol and diltiazem. Hyperlipidemia. -Continued atorvastatin Diabetes. -Continued metformin -Check glucose before meals and at bedtime with sliding scale insulin coverage Obstructive sleep apnea. Not currently using CPAP. Idiopathic cardiomyopathy. She has global hypokinesis. EF was 20% as of January 2013, and was up to 55% as of August 23, 2013. Her most recent echocardiogram was performed in June 2015, and showed ejection fraction of55%. There was moderate dyssynchrony to the paced rhythm. She had severe left atrial enlargement, moderate right atrial enlargement, moderate mitral regurgitation, moderate tricuspid regurgitation, moderate pulmonic regurgitation. She has mild aortic stenosis and mild aortic regurgitation, unchanged from prior study. Pacemaker upgrade from single lead to a BiV device ([place]) inJanuary 2013. Hx Syncope resulting in subdural hematoma. Medically treated (January2013). -Patient has a pacemaker/AICD since that time Metastatic endometrial adenocarcinoma. Also, fallopian tube carcinoma, status post debulking procedure followed by intraperitoneal chemotherapy lavage at [facility] and paclitaxel chemotherapy in 2005. Gastroesophageal Reflux -Continued proton pump inhibitor . Chronic iron deficiency anemia. -Continued ferrous sulfate as at home . Exam Vital Signs (Last) Date Time Temp Pulse Resp B/P Pulse Ox O2 Delivery O2 Flow Rate FiO2 05/07/16 10:06 63 05/07/16 09:56 36.9 16 153/91 93 Nasal Cannula 3.00 Exam Alert, NAD Heart irreg with controlled rate Lungs: clear Extrem: no pedal edema Test 05/02/16 12:25 05/02/16 13:46 05/03/16 06:17 05/07/16 05:50 Troponin T < 0.010ug/L (0.0-0.011) Pro-B-Type Natriuretic Peptide 4618pg/mL (0-738) Hold Cespedes Top Tube Received (Received) Hold Urine Received (Received) Prothrombin Time 11.6sec (8.1-12.5) Prothromb Time International Ratio 1.08ratio Hemoglobin A1c 6.3% (4.8-5.6) White Blood Count 7.0th/mm3 (3.8-10.1) Red Blood Count 3.72mil/mm3 (3.90-5.20) Hemoglobin 11.6g/dL (12.0-15.6) Hematocrit 35.2% (35.0-46.0) Mean Corpuscular Volume 94.6fL (81-100) Mean Corpuscular Hemoglobin 31.2pg (27.0-35.0) Mean Corpuscular Hemoglobin Concent 33.0% (32.0-37.0) Red Cell Distribution Width 12.6% (12.3-15.4) Platelet Count 177bil/L (150-400) Neutrophils (%) (Auto) 67.7% (40-74) Lymphocytes (%) (Auto) 23.0% (14-46) Monocytes (%) (Auto) 7.3% (4-12) Eosinophils (%) (Auto) 1.6% (0-5) Basophils (%) (Auto) 0.1% (0-3) Sodium Level 142mEq/L (134-144) Potassium Level 4.3mEq/L (3.5-5.2) Chloride Level 99mEq/L (97-108) Carbon Dioxide Level 32mmol/L (18-29) Blood Urea Nitrogen 25mg/dL (8-27) Creatinine 1.26mg/dL (0.57-1.00) Estimat Glomerular Filtration Rate 58mL/min (>59) Glucose Level 147mg/dL (60-99) Calcium Level 9.2mg/dL (8.5-10.1) Magnesium Level 1.7mg/dL (1.6-2.6) Total Bilirubin 0.5mg/dL (0.0-1.2) Aspartate Amino Transf (AST/SGOT) 14U/L (0-50) Alanine Aminotransferase (ALT/SGPT) 5U/L (0-32) Alkaline Phosphatase 78U/L (25-165) Total Protein 6.1g/dL (6.4-8.4) Albumin 3.3g/dL (3.4-5.0) Discharge Medications Discharge Medications Apixaban (Eliquis) 5 Mg Tablet 5 MG PO BID (Reported) Atorvastatin (Lipitor) 20 Mg Tablet 10 MG PO HS (Reported) Calcium Carbonate/Vitamin D3 (Calcium 500 mg Chewable Tablet) 1 Each Tab.chew 1 EACH PO DAILY (Reported) Cholecalciferol (Vitamin D3) (Vitamin D) 1,000 Unit Tablet 1,000 UNIT PO DAILY ( Reported) Cyanocobalamin (Vitamin B-12) (Vitamin B-12) 1,000 Mcg Tablet 1,000 MCG PO DAILY (Reported) Diltiazem ER (Diltiazem ER) 180 Mg Capsule.er 180 MG PO BID (Reported) Diltiazem ER (Diltiazem ER) 120 Mg Cap.er.12h 120 MG PO HS (Reported) Ferrous Sulfate (Ferrous Sulfate) 325 Mg Tablet 325 MG PO DAILY (Reported) Furosemide (Furosemide) 40 Mg Tablet 20 MG PO Mon, Wed, FRi (Reported) Furosemide (Furosemide) 40 Mg Tablet 40 MG PO ,,, (Reported) Glipizide (Glipizide) 5 Mg Tablet 5 MG PO DAILY (Reported) Insulin Human Lispro (HumaLOG U100 Insulin Vial) 100 Unit/Ml Unit 0 UNIT SUBQ WMHS Check blood sugars before meals and at bedtime. Use correction factor only before meals. Blood Sugar Lispro Correction: <151, 0 units; 151-175, 1 unit; 176-200, 2 units; 201-225, 3 units; 226-250, 4 units; 251-275, 5 units; 276-300 , 6 units; 301-325, 7 units; 326-350, 8 units; 351-375, 9 units; 376-400, 10 units; >400, 12 units. Prescribed by: CONNIE DOTY MD Levothyroxine (Levothyroxine) 88 Mcg Tablet 88 MCG PO DAILY (Reported) Lisinopril (Lisinopril) 5 Mg Tablet 2.5 MG PO DAILY (Reported) Magnesium Oxide (Magnesium) 250 Mg Tablet 250 MG PO DAILY (Reported) Metformin (Metformin) 500 Mg Tablet 500 MG PO DAILY (Reported) Metoprolol Tartrate (Metoprolol Tartrate) 100 Mg Tablet 200 MG PO BID (Reported ) Omeprazole (Omeprazole) 20 Mg Capsule.dr 20 MG PO DAILY (Reported) Venlafaxine (Venlafaxine) 37.5 Mg Tablet 37.5 MG PO DAILY (Reported) As needed Hydrocodone-Acetaminophen 5-325 mg (Hydrocodone-Acetaminophen 5-325 mg) 1 Each Tablet 1-2 TABLET PO Q4H PRN PRN For Moderate Pain Prescribed by: CONNIE DOTY MD Followup Plan Follow-up plan Follow-up plan: In on POD #12 at [facility] with PA for wound check and staple removal and at [address] Orr with x-rays of the hip and left thumb. Discharge Diet: Heart Healthy Discharge Activity: Other (Weightbearing: Touchdown weightbearing with the right lower extremity 6 weeks) Connie Doty MD May 07, 2016 12:46
--- NOTE | 2016-05-07 13:40 | NUR ---
Social Work: Discharge Data: Pt is on day 5 of hospitalization. EMR reviewed. D/C orders are in. BUSINESS OPERATIONS MANAGER notified Tricia [place] who set up transportation for 3:00pm. BUSINESS OPERATIONS MANAGER notified RN, UA, pt, and pt's family. No further d/c planning needs at this time. BUSINESS OPERATIONS MANAGER will continue to follow if needs arise. Assessment: Pt who is independent at baseline. Plan: Pt will d/c to [facility] via wheel chair van at 3:00pm. No further d/c planning needs at this time. BUSINESS OPERATIONS MANAGER will continue to follow if needs arise. DANIEL Gale
--- NOTE | 2016-05-07 16:26 | NUR ---
Discharge Pt transferred to [facility] at 1515 in w/c with transfer staff. Discharge packet and all belongings with them. Pt able to ambulate to [facility] then w/c, pt did having increasing nausea with movement. Pt had c/o pain 2/10 all shift and declined medications including Tylenol. Pt VSS, A&O x3, [place]. IV removed intact, telemetry removed. No hallucinations during shift. Addendum: 05/07/16 at 1630 by DILSHAD CHAMBERS RN Report called to Michelle at [facility].
== END 2016-05-07 15:19 | DRG 481 ==
LOC: SED 11:09 → OBSVTOIN 17:59 → OSC 17:59
PROVIDERS: ADMIT Internal Medicine Infectious Disease; ATTEND Internal Medicine Infectious Disease
PROC: 0QS634Z Reposition Right Upper Femur with Internal Fixation Device, Percutaneous Approach (ICD-10-PCS; principal; 2016-05-04 13:30)
DX: S72.011A Unspecified intracapsular fracture of right femur, initial encounter for closed fracture (principal); I42.8 Other cardiomyopathies; Z92.21 Personal history of antineoplastic chemotherapy; C54.1 Malignant neoplasm of endometrium; Z87.891 Personal history of nicotine dependence; Y93.01 Activity, walking, marching and hiking; Y99.9 Unspecified external cause status; W19.XXXA Unspecified fall, initial encounter; Y92.531 Health care provider office as the place of occurrence of the external cause; S62.524A Nondisplaced fracture of distal phalanx of right thumb, initial encounter for closed fracture; I48.2 Chronic atrial fibrillation; E78.5 Hyperlipidemia, unspecified; I10 Essential (primary) hypertension; Z79.84 Long term (current) use of oral hypoglycemic drugs; E11.9 Type 2 diabetes mellitus without complications; G47.33 Obstructive sleep apnea (adult) (pediatric); K21.9 Gastro-esophageal reflux disease without esophagitis; D50.8 Other iron deficiency anemias; Z79.01 Long term (current) use of anticoagulants; Z95.0 Presence of cardiac pacemaker